=== PATIENT | male | born 1955 | race Caucasian/White ===

== ENCOUNTER 2016-08-21 06:58 | Emergency (ER) | payer MEDICAID ==
[~2016-08-21] VITALS: Ht 167.6 cm; Wt 82.0 kg
[~2016-08-21 06:58] MED LIST: ATOR1TAB18 PO; BRIL90TA PO; CARV12.5 PO; CYCL1TAB29 PO; LISI-519 PO; MUCI600T PO; PANT40TA3 PO; SERO100T PO; TAMS5CAP PO; VENTAER INH
[2016-08-21 07:03] VITALS: BP 153/70; PULSE 70; RESP 20; TEMP 97.6; O2SAT 95
[2016-08-21 07:54] LABS: AUTOMATED NEUTROPHIL # 8.6 TH/MM3 (1.8-7.7); BASOPHIL # 0.1 TH/MM3 (0-0.2); BASOPHIL % 0.5 % (0.0-2.0); EOSINOPHIL # 0.3 TH/MM3 (0-0.4); EOSINOPHIL % 2.1 % (0.0-4.0); HEMATOCRIT 39.2 % (39.0-51.0); HEMO FLAGS DIFF FINAL; LYMPH % 21.1 % (9.0-44.0); LYMPHOCYTE # 2.9 TH/MM3 (1.0-4.8); MEAN CELL VOLUME 87.6 FL (80.0-100.0); MEAN CORPUSCULAR HEMOGLOBIN 28.1 PG (27.0-34.0); MEAN CORPUSCULAR HGB CONC 32.1 % (32.0-36.0); MONO % 14.4 % (0.0-8.0); NEUT % 61.9 % (16.0-70.0); PLATELET COUNT 334 TH/MM3 (150-450); RED BLOOD COUNT 4.47 MIL/MM3 (4.50-5.90); WHITE BLOOD COUNT 13.9 TH/MM3 (4.0-11.0)
[2016-08-21 08:08] LABS: ALT (GPT) 32 U/L (12-78); ANION GAP 7 MEQ/L (5-15); AST (GOT) 34 U/L (15-37); BICARBONATE 26.2 MEQ/L (21.0-32.0); BLOOD UREA NITROGEN 20 MG/DL (7-18); CHLORIDE 106 MEQ/L (98-107); GLOMERULAR FILTRATION RATE 59 ML/MIN (>89); POTASSIUM 4.4 MEQ/L (3.5-5.1); SODIUM (NA) 139 MEQ/L (136-145)
[2016-08-21 08:10] LABS: ALKALINE PHOSPHATASE 104 U/L (45-117); TOTAL BILIRUBIN ADULT 0.4 MG/DL (0.2-1.0)
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
--- NOTE | 2016-08-21 08:51 | RADRPT ---
EXAM DATE/TIME: 08/21/2016 08:16 [facility] COMPARISON: CT LUMBAR SPINE W/O CONTRAST, February 13, 2016, 21:21. INDICATIONS : Pain. Bilateral lower extremity burning pain. MEDICAL HISTORY : None. SURGICAL HISTORY : Cardiac stents. Hand surgery. ENCOUNTER: Initial ACUITY: 4-6 months PAIN SCORE: 3/10 LOCATION: [facility] TECHNIQUE: Multiplanar multisequence MRI of the lumbar spine was performed without contrast. FINDINGS: The most caudal appearing lumbar vertebra is numbered as L5. Alignment is normal. Diffuse disc desicc ation is identified. Conus unremarkable. Hemangioma at the L2 vertebral body. Mild disc space narrowi ng is present throughout the lumbar spine. Bone marrow signal intensity is normal. T12-L1: The thecal sac has a normal diameter. No evidence of disc bulge or protrusion. The neural foramina are patent bilaterally. L1-L2: Mild left lateral disc bulging with no canal or foraminal narrowing. Mild facet and ligamentum flavum hypertrophy. L2-L3: A diffuse disc bulge is noted abutting the L3 nerve roots and L2 exiting nerves. Mild facet and ligam entum flavum hypertrophy. Moderate left foraminal narrowing. L3-L4: Mild diffuse disc bulge abuts the L4 nerve roots and L3 exiting nerves but does not displace them. Mi ld facet and ligamentum flavum hypertrophy. Moderate left foraminal narrowing. L4-L5: Diffuse disc bulge greatest centrally impinging upon the L5 nerve roots bilaterally and abutting the L4 exiting nerves. No significant canal or foraminal narrowing. Moderate facet hypertrophy. L5-S1: Minimal diffuse disc bulge with no canal or foraminal narrowing. CONCLUSION: Degenerative changes are noted as described above. Ramiro Puri MD on August 21, 2016 at 8:46 Board Certified Radiologist. This report was verified electronically.
--- NOTE | 2016-08-21 09:55 | RADRPT ---
EXAM DATE/TIME: 08/21/2016 09:20 [facility] COMPARISON: US ABDOMEN - GALLBLADDER, August 13, 2015, 19:00. INDICATIONS : Right upper quadrant pain. MEDICAL HISTORY : Myocardial infarction. Chronic obstructive pulmonary disease. Hypertension. Cerebrovascular accident. Coronary artery disease. Schizophrenia. Depression. SURGICAL HISTORY : Coronary artery stent. Left hand surgery. Gallbladder drain placement and removal. ENCOUNTER: Initial ACUITY: 1 day PAIN SCORE: 1/10 LOCATION: Right upper quadrant MEASUREMENTS: LIVER: 15.9 cm length COMMON DUCT: 5 mm RIGHT KIDNEY: 10.6 x 5.2 x 4.8 cm FINDINGS: LIVER: Normal echotexture without focal lesion or ductal dilatation. COMMON DUCT: No intraluminal mass or stone visualized. GALLBLADDER: Wall thickness measures up to 3 mm. No stones. No pericholecystic fluid and a negative sonographic Mu rphy's sign. PANCREAS: The visualized portions are within normal limits. RIGHT KIDNEY: No evidence of hydronephrosis, stone, or mass. CONCLUSION: Gallbladder wall thickness upper limits normal at 3 mm. Study otherwise unremarkable. Ramiro Puri MD on August 21, 2016 at 9:51 Board Certified Radiologist. This report was verified electronically.
[2016-08-21] MEDS ORDERED: PRED10PA2 PO (10:03)
[2016-08-21] MEDS ORDERED: GABA100C4 PO (10:07)
[2016-08-21 13:57] VITALS: BP 124/75
== END 2016-08-21 13:59 | disposition home or self-care (01) ==
LOC: NEPE 06:58
DX: M51.26 Other intervertebral disc displacement, lumbar region (principal); M79.651 Pain in right thigh; M79.652 Pain in left thigh; R20.0 Anesthesia of skin; R10.9 Unspecified abdominal pain; D72.829 Elevated white blood cell count, unspecified; R26.2 Difficulty in walking, not elsewhere classified; I10 Essential (primary) hypertension; Z86.59 Personal history of other mental and behavioral disorders; Z86.79 Personal history of other diseases of the circulatory system; Z87.09 Personal history of other diseases of the respiratory system
CPT/HCPCS: 72148; 76705; 80053; 85025

== ENCOUNTER 2016-08-22 17:07 | Emergency (ER) | payer MEDICAID ==
[~2016-08-22] VITALS: Ht 170.2 cm; Wt 65.0 kg
[~2016-08-22 17:07] MED LIST changes: +GABA100C4 PO; -MUCI600T PO; +PRED10PA2 PO
[2016-08-22 17:12] VITALS: PULSE 64; RESP 18; TEMP 98.3; O2SAT 98
--- NOTE | 2016-08-22 17:37 | PD ---
HPI Chief Complaint: Abdominal Pain Time Seen by Provider: 17:22 Travel History International Travel<30 days: No Contact w/Intl Traveler<30days: No Traveled to known affect area: No History of Present Illness HPI This patient complains of right upper quadrant spasms. They come and go. No vomiting today. He ate and did fine. No alleviating factors. Symptoms severity is mild. Duration 2 days. He was seen here yesterday and had labs and ultrasound. He denies fever. PFSH Past Medical History Hx Anticoagulant Therapy: No Depression: Yes Heart Rhythm Problems: No Cancer: No Cardiac Catheterization: Yes (STENT x2) Cardiovascular Problems: Yes (stent x2 2013) High Cholesterol: No Chemotherapy: No Chest Pain: Yes Congestive Heart Failure: No COPD: Yes Cerebrovascular Accident: Yes Coronary Artery Disease: Yes Diabetes: No Diminished Hearing: No Endocrine: No Gastrointestinal Disorders: No Genitourinary: No Hypertension: Yes Immune Disorder: No Implanted Vascular Access Dvce: No Musculoskeletal: No Neurologic: No Psychiatric: No Reproductive: No Respiratory: No Schizophrenia: Yes Thyroid Disease: No Past Surgical History Abdominal Surgery: Yes (GALLBLADDER STENT) AICD: No Arteriovenous Shunt: No Cardiac Surgery: Yes (STENT X2) Coronary Stent: Yes (2) Ear Surgery: No Endocrine Surgery: No Eye Surgery: No Genitourinary Surgery: No Gynecologic Surgery: No Insulin Pump: No Joint Replacement: No Neurologic Surgery: No Oral Surgery: No Pacemaker: No Thoracic Surgery: No Other Surgery: Yes (LEFT HAND) Social History Alcohol Use: No Tobacco Use: No Substance Use: No Allergies-Medications (Allergen,Severity, Reaction): Coded Allergies: Motrin (Verified Allergy, Severe, RASH, 08/21/16) Reported Meds & Prescriptions Reported Meds & Active Scripts Active Gabapentin 100 Mg Cap 100 Mg PO TID Prednisone (48) 10 mg tab Dose Pack (Prednisone) 10 Mg Dspk 10 Mg PO DIRECTED Flexeril (Cyclobenzaprine HCl) 10 Mg Tab 5 Mg PO BID PRN Coreg (Carvedilol) 12.5 Mg Tab 25 Mg PO BID Ventolin Hfa 18 GM Inh (Albuterol Sulfate) 90 Mcg/Act Aer 2 Puff INH Q4-6H PRN Reported Atorvastatin (Atorvastatin Calcium) 80 Mg Tab 80 Mg PO HS Brilinta (Ticagrelor) 90 Mg Tab 90 Mg PO BID Seroquel (Quetiapine Fumarate) 100 Mg Tab 100 Mg PO HS Pantoprazole (Pantoprazole Sodium) 40 Mg Tab 40 Mg PO DAILY Lisinopril 5 Mg Tab 5 Mg PO DAILY Flomax (Tamsulosin HCl) 0.4 Mg Cap 0.4 Mg PO HS Review of Systems General / Constitutional: No: Fever Eyes: No: Visual changes HENT: No: Headaches Cardiovascular: No: Chest Pain or Discomfort Respiratory: No: Shortness of Breath Gastrointestinal: Positive: Nausea, Diarrhea, Abdominal Pain Genitourinary: No: Dysuria Musculoskeletal: No: Pain Skin: No Rash Neurologic: No: Weakness Psychiatric: No: Depression Endocrine: No: Polydipsia Hematologic/Lymphatic: No: Easy Bruising Physical Exam Narrative GENERAL: Well-nourished, well-developed patient in no apparent distress. SKIN: Focused skin assessment reveals no rash and nodules. Skin is Warm and dry. HEAD: Atraumatic. Normocephalic. EYES: Pupils equal and round. No scleral icterus. No injection or drainage. ENT: No nasal bleeding or discharge. Mucous membranes pink and moist. NECK: Trachea midline. No JVD. CARDIOVASCULAR: Regular rate and rhythm. No murmur appreciated. RESPIRATORY: No accessory muscle use. Clear to auscultation. Breath sounds equal bilaterally. GASTROINTESTINAL: Abdomen soft, non-tender, nondistended. Hepatic and splenic margins not palpable. MUSCULOSKELETAL: No obvious deformities. No clubbing. No cyanosis. No edema. NEUROLOGICAL: Awake and alert. No obvious cranial nerve deficits. Motor grossly within normal limits. Normal speech. PSYCHIATRIC: Appropriate mood and affect; insight and judgment normal. Data Data Last Documented VS Vital Signs Date Time Temp Pulse Resp B/P Pulse Ox O2 Delivery O2 Flow Rate FiO2 08/22/16 17:12 98.3 64 18 98 Orders Complete Blood Count With Diff (08/22/16 17:33) Comprehensive Metabolic Panel (08/22/16 17:33) Lipase (08/22/16 17:33) Iv Access Insert/Monitor (08/22/16 17:33) MDM Medical Decision Making Medical Screen Exam Complete: Yes Emergency Medical Condition: Yes Medical Record Reviewed: Yes Differential Diagnosis Biliary colic, cholecystitis, colitis Narrative Course I have reviewed the patient's electronic medical record. Patient ultrasound with no periCholecystic fluid or gallstones noted. There was borderline thickness of the gallbladder wall. He had normal labs Patient has a soft benign nontender abdomen He is asymptomatic He was eating today without difficulty I don't feel he needs repeat extensive workup that was just done yesterday. He looks clinically well Going to observe him for a short while and if he does well we'll discharge him home. Diagnosis Primary Impression: Right upper quadrant abdominal pain of unknown etiology Additional Instructions: The patient was advised to follow up with their physician and return if they worsen. Med/Other Pt SpecificInfo: Other Disposition: 01 DISCHARGE HOME Condition: Stable Omi Andrade MD Aug 22, 2016 17:36
== END 2016-08-22 18:59 | disposition home or self-care (01) ==
LOC: NEPC 17:07
DX: R10.11 Right upper quadrant pain (principal)
CPT/HCPCS: 99283

== ENCOUNTER 2017-01-17 17:59 | Emergency (ER) | payer MEDICAID ==
[~2017-01-17 17:59] MED LIST changes: -ATOR1TAB18 PO; +ATOR80TA45 PO; +CYCL10TA PO; -CYCL1TAB29 PO
[2017-01-17 18:02] VITALS: BP 150/72; PULSE 60; RESP 12; TEMP 98.5; O2SAT 99
[2017-01-17] MEDS ORDERED: ROBA750T PO (19:43)
[2017-01-17] MEDS ORDERED: HYDR-3516 PO (19:43)
[2017-01-17] MEDS ORDERED: CYCLOBENZAPRINE HCL 10 MG TAB PO ONE (19:45)
[2017-01-17] MEDS ORDERED: ACETAMINOPHEN/HYDROcodone 325 MG/5 MG TAB PO ONE (19:45)
--- NOTE | 2017-01-17 19:48 | PD ---
HPI Chief Complaint: Back/ Neck Pain or Injury Time Seen by Provider: 19:33 Travel History International Travel<30 days: No Contact w/Intl Traveler<30days: No Traveled to known affect area: No History of Present Illness HPI 61-year-old white male presents to emergency department complains of right lower back pain after lifting a case of water at home yesterday evening. He states that he had bent over to lift it up when he had pulled something in his right lower back. He states the pain is moderate but can be severe with certain movements. He states that he has some relief when he still. Patient has an area of chronic decreased sensation to the distal lateral surface of his left thigh which is unchanged. He states that this been there for quite some time. No acute bowel or bladder changes. PFSH Past Medical History Hx Anticoagulant Therapy: No Depression: Yes Heart Rhythm Problems: No Cancer: No Cardiac Catheterization: Yes (STENT x2) Cardiovascular Problems: Yes (stent x2 2013) High Cholesterol: No Chemotherapy: No Chest Pain: Yes Congestive Heart Failure: No COPD: Yes Cerebrovascular Accident: Yes Coronary Artery Disease: Yes Diabetes: No Diminished Hearing: No Endocrine: No Gastrointestinal Disorders: No Genitourinary: No Hypertension: Yes Immune Disorder: No Implanted Vascular Access Dvce: No Musculoskeletal: No Neurologic: No Psychiatric: No Reproductive: No Respiratory: No Schizophrenia: Yes Thyroid Disease: No Past Surgical History Abdominal Surgery: Yes (GALLBLADDER STENT) AICD: No Arteriovenous Shunt: No Cardiac Surgery: Yes (STENT X2) Coronary Stent: Yes (2) Ear Surgery: No Endocrine Surgery: No Eye Surgery: No Genitourinary Surgery: No Gynecologic Surgery: No Insulin Pump: No Joint Replacement: No Neurologic Surgery: No Oral Surgery: No Pacemaker: No Thoracic Surgery: No Other Surgery: Yes (LEFT HAND) Social History Alcohol Use: No Tobacco Use: No Substance Use: No Allergies-Medications (Allergen,Severity, Reaction): Coded Allergies: ibuprofen (Unverified Allergy, Severe, RASH, 10/05/16) Reported Meds & Prescriptions Reported Meds & Active Scripts Active Hydrocodone-Acetaminophen 5-325 mg Tab 1 Tab PO Q8HR PRN Robaxin (Methocarbamol) 750 Mg Tab 750 Mg PO QID 10 Days Gabapentin 100 Mg Cap 100 Mg PO TID Prednisone (48) 10 mg tab Dose Pack (Prednisone) 10 Mg Dspk 10 Mg PO DIRECTED Flexeril (Cyclobenzaprine HCl) 10 Mg Tab 5 Mg PO BID PRN Coreg (Carvedilol) 12.5 Mg Tab 25 Mg PO BID Ventolin Hfa 18 GM Inh (Albuterol Sulfate) 90 Mcg/Act Aer 2 Puff INH Q4-6H PRN Reported Atorvastatin (Atorvastatin Calcium) 80 Mg Tab 80 Mg PO HS Brilinta (Ticagrelor) 90 Mg Tab 90 Mg PO BID Seroquel (Quetiapine Fumarate) 100 Mg Tab 100 Mg PO HS Pantoprazole (Pantoprazole Sodium) 40 Mg Tab 40 Mg PO DAILY Lisinopril 5 Mg Tab 5 Mg PO DAILY Flomax (Tamsulosin HCl) 0.4 Mg Cap 0.4 Mg PO HS Review of Systems General / Constitutional: No: Fever Eyes: No: Visual changes HENT: No: Headaches Cardiovascular: No: Chest Pain or Discomfort Respiratory: No: Shortness of Breath Gastrointestinal: No: Abdominal Pain Genitourinary: No: Dysuria Musculoskeletal: Positive: Limited ROM, Cramping, Pain, No: Edema Skin: No Rash Neurologic: Positive: Sensory Disturbance (chronic left lateral lower leg just above the knee.), No: Weakness, Incontinence Psychiatric: No: Depression Endocrine: No: Polydipsia Hematologic/Lymphatic: No: Easy Bruising Physical Exam Narrative GENERAL: This is a well-nourished, well-developed patient, in no apparent distress. SKIN: No rashes, ecchymoses or lesions. Warm and dry. HEAD: Atraumatic. Normocephalic. EYES: PERRL, EOMI, no discharge or injection. No scleral icterus. EARS: Clear NOSE: Nasal turbinates appear normal. THROAT: Mucosa pink and moist. Airway patent. NECK: Trachea midline. supple, moves head freely. LUNGS: Clear to auscultation. CV: Regular in rhythm. ABDOMEN: Soft nontender. EXT: No clubbing cyanosis or edema. Patient has intact sensation below the knees into the feet. Has good distal pulses. Back: No central bony tenderness to palpation of dorsal lumbar spine. He has right paralumbar muscle tenderness or spasm. He has decreased for flexion to 70 . He is able to heel and toe stand. No saddle anesthesia. Data Data Last Documented VS Vital Signs Date Time Temp Pulse Resp B/P (MAP) Pulse Ox O2 Delivery O2 Flow Rate FiO2 01/17/17 18:02 98.5 60 12 150/72 (98) 99 Orders Orders Cyclobenzaprine (Flexeril) (01/17/17 19:45) Acetamin-Hydrocod 325-5 Mg ([place] 5-325 (01/17/17 19:45) Ed Discharge Order (01/17/17 19:43) MDM Medical Decision Making Medical Screen Exam Complete: Yes Emergency Medical Condition: Yes Medical Record Reviewed: Yes Differential Diagnosis MDM: High Differential diagnoses: Fracture, sprain, strain, dislocation, contusion, neurovascular injury Narrative Course Patient is given Flexeril 10 mg of Lortab 5 mg by mouth. Patient has a lumbar strain. X-rays are not indicated. Patient has an allergy to ibuprofen. Diagnosis Primary Impression: Lumbar strain Qualified Codes: S39.012A - Strain of muscle, fascia and tendon of lower back , initial encounter Patient Instructions: General Instructions, Narcotic given in the ED Additional Instructions: Rest. Ice for the next 3 days followed by heat . Robaxin and Lortab.. Follow-up with a primary care doctor in one week. Return to the ER for emergencies. Med/Other Pt SpecificInfo: Prescription(s) given Scripts Hydrocodone-Acetaminophen (Hydrocodone-Acetaminophen) 5-325 mg Tab 1 TAB PO Q8HR Y for PAIN, #20 TAB 0 Refills Prov: Aneesh Hernández MD 01/17/17 Methocarbamol (Robaxin) 750 Mg Tab 750 MG PO QID for Muscle Spasm for 10 Days, TAB 0 Refills Prov: Aneesh Hernández MD 01/17/17 Disposition: 01 DISCHARGE HOME Condition: Stable Ralph Hernández Jan 17, 2017 19:48
== END 2017-01-17 20:12 | disposition home or self-care (01) ==
LOC: NEPK 17:59
DX: S39.012A Strain of muscle, fascia and tendon of lower back, initial encounter (principal); J44.9 Chronic obstructive pulmonary disease, unspecified; I25.10 Atherosclerotic heart disease of native coronary artery without angina pectoris; I10 Essential (primary) hypertension; F20.9 Schizophrenia, unspecified; X50.0XXA Overexertion from strenuous movement or load, initial encounter; Y92.009 Unspecified place in unspecified non-institutional (private) residence as the place of occurrence of the external cause; Z86.73 Personal history of transient ischemic attack (TIA), and cerebral infarction without residual deficits; Z79.899 Other long term (current) drug therapy
CPT/HCPCS: 99283

== ENCOUNTER 2017-05-01 13:24 | Emergency (ER) | payer MEDICAID ==
[~2017-05-01] VITALS: Ht 167.6 cm; Wt 80.0 kg
[~2017-05-01 13:24] MED LIST changes: +ASPI-516 CHEW; +ATOR20TA15 PO; +BENZ100 PO; +CARV3.12 PO; +FLUT1SPR5 EACH NARE; +HYDR-3516 PO; +QUET1TAB7 PO; +ROBA750T PO; +TAMS0.4C4 PO
[2017-05-01 13:42] VITALS: BP 105/55; PULSE 58; RESP 16; TEMP 98.5; O2SAT 96
[2017-05-01] MEDS ORDERED: CYCL10TA PO (15:52)
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
[2017-05-01] MEDS ORDERED: PRED20 PO (15:59)
[2017-05-01] MEDS ORDERED: predniSONE 20 MG TAB PO ONE (16:00)
[2017-05-01] MEDS ORDERED: KETOROLAC TROMETHAMINE 60 MG/2 ML (IM) VIAL IM ONE (16:00)
== END 2017-05-01 16:15 | disposition home or self-care (01) ==
LOC: NEPD 13:24
DX: M54.41 Lumbago with sciatica, right side (principal); G89.29 Other chronic pain; I10 Essential (primary) hypertension
CPT/HCPCS: 99283; J7512

== ENCOUNTER 2017-11-14 14:44 | Observation (INO) ==
--- NOTE | 2017-11-14 18:18 | XR ---
EXAM DATE: 11/14/2017 6:15 PM EDT AGE/SEX: 62 years / Male INDICATIONS: . Shortness of breath with bilateral feet swelling. CLINICAL DATA: This is the patient's initial encounter. Patient reports that signs and symptoms have been present for 2 days and indicates a pain score of 0/10. MEDICAL/SURGICAL HISTORY: Hypertension. . cardiac stents. COMPARISON: [facility] [place], 03/05/[place]. . FINDINGS: PA and lateral views of the chest demonstrate the lungs to be symmetrically aerated without evidence of mass, infiltrate or effusion. The cardiomediastinal contours are unremarkable. Osseous structures are intact. CONCLUSION: No acute cardiopulmonary disease. Electronically signed by: Gurpreet Corea MD 11/14/2017 6:16 PM EDT
--- NOTE | 2017-11-14 18:37 | ED ---
HPI General Chief complaint: Shortness of Breath/Dyspnea Stated complaint: Left foot swollen Time Seen by Provider: 11/14/17 17:49 Source: patient Mode of arrival: ambulatory Limitations: no limitations History of Present Illness HPI narrative: Patient is a 62-year-old male, past medical history significant for hypertension, hyperlipidemia, CAD with previous cardiac stent, who presents with complaint of left ankle/lower extremity swelling that he noticed this morning. He denies pain at this time. He states that upon awakening this morning he had several seconds of shortness of breath with chest pain that has resolved. No cough, fever, chills. He drove to [place] approximately 4 months ago but has not had any immobilization since then. Onset (ago): hour(s) Location: left and lower extremity Radiation: non-radiation Severity: mild Relieving factors: none Exacerbating factors: none Associated symptoms: shortness of breath Treatments prior to arrival: none Related Data Home Medications Medication Instructions Recorded Confirmed aspirin 81 mg PO DAILY 09/28/17 11/14/17 fluoxetine 20 mg PO DAILY 09/28/17 11/14/17 quetiapine [Seroquel] 25 mg PO HS 09/28/17 11/14/17 tamsulosin [Flomax] 0.4 mg PO HS 09/28/17 11/14/17 amlodipine [Norvasc] 5 mg PO DAILY 10/13/17 11/14/17 atorvastatin 20 mg PO HS 10/13/17 11/14/17 pantoprazole [Protonix] 40 mg PO DAILY 10/13/17 11/14/17 Previous Rx's Medication Instructions Recorded famotidine [Pepcid] 40 mg PO BID #10 tab 10/13/17 epinephrine [EpiPen 2-Toni] 0.3 mg IM Q10M PRN #2 each 10/14/17 diphenhydramine HCl [Benadryl] 25 mg PO Q6H PRN #14 cap 11/09/17 Allergies Allergy/AdvReac Type Severity Reaction Status Date / Time ibuprofen Allergy Severe RASH Verified 10/27/17 22:15 lisinopril Allergy Severe angioedema Verified 10/27/17 22:15 Review of Systems ROS: all other systems reviewed are negative [facility] Medical History Medical History Depression (Acute) Hypercholesterolemia (Acute) Surgical History Surgical History History of ERCP (Acute) Hx of heart artery stent (Acute) Social History Social History Substance History: No History of Abuse Second Hand Smoke Exposure: No Smoking Status: Former smoker Tobacco Type: Cigarettes How Often Do You Have a Drink Containing Alcohol: Never Recent Travel in [facility] within the Last 8 Weeks: No Recent Out of Country Travel within the Last 8 Weeks: No Immunization History Tetanus Immunization: Unsure Exam Narrative Exam Narrative: GENERAL: Well-appearing male in no acute distress SKIN: Focused skin assessment warm/dry. No rashes. HEAD: Atraumatic. Normocephalic. EYES: Pupils equal and round. No scleral icterus. No injection or drainage. ENT: No nasal bleeding or discharge. Mucous membranes pink and moist. NECK: Trachea midline. No JVD. CARDIOVASCULAR: Regular rate and rhythm. No murmur appreciated. Intact and equal peripheral pulses. Normal cap refill. RESPIRATORY: No accessory muscle use. Clear to auscultation. Breath sounds equal bilaterally. GASTROINTESTINAL: Abdomen soft, non-tender, nondistended. Hepatic and splenic margins not palpable. MUSCULOSKELETAL: No obvious deformities. No clubbing. No cyanosis. Slight edema to the left lower extremity when compared to the right. NEUROLOGICAL: Awake and alert. No obvious cranial nerve deficits. Motor grossly within normal limits. Normal speech. PSYCHIATRIC: Appropriate mood and affect; insight and judgment normal. Course Initial Documented Vital Signs Temperature 97.9 F 11/14/17 14:47 Pulse Rate 70 11/14/17 14:47 Respiratory Rate 16 11/14/17 14:47 Blood Pressure 162/83 H 11/14/17 14:47 Pulse Oximetry 96 11/14/17 14:47 Last Documented Vital Signs Temperature 97.9 F 11/14/17 14:47 Pulse Rate 70 11/14/17 14:47 Respiratory Rate 16 11/14/17 14:47 Blood Pressure 162/83 H 11/14/17 14:47 Pulse Oximetry 96 11/14/17 14:47 Medical Decision Making MDM Narrative Medical decision making narrative: Patient is a 62-year-old male, past medical history significant for coronary artery disease with a previous stent, who presents with complaint of bilateral ankle swelling worse on the left in addition to several seconds to minutes of chest pain or shortness of breath this morning that quickly resolved on its own. EKG shows sinus rhythm with a right bundle branch block which was present on previous EKG. Chest x-ray and venous duplex are unremarkable. Labs reveal a normal d-dimer and creatinine but with a troponin of 0.09 (with normal baseline). He has been admitted to Dr. Garcia, hospitalist on-call, for serial troponins and EKGs. Medical Screen Exam Complete: Yes Emergency Medical Condition: Yes Differential Diagnosis Differential Diagnosis: Differential diagnosis includes but is not limited to DVT, CHF, hypoalbuminemia. Medical Records Medical records reviewed: Yes I reviewed the patient's medical records. Lab Data Lab results reviewed: Yes I reviewed the patient's lab results. Lab results narrative: Slight elevation of troponin Result diagrams: 11/14/17 18:20 Lab Results 11/14/17 11/14/17 11/14/17 Range/Units 18:20 18:20 18:20 D-Dimer Quant (PE/DVT) 0.39 (0.00-0.50) mg/L FEU Sodium 139 (136-145) meq/L Potassium 4.2 (3.5-5.1) meq/L Chloride 103 (98-107) meq/L Carbon Dioxide 28.3 (21.0-32.0) meq/L Anion Gap 8 (5-15) meq/L BUN 12 (7-18) mg/dL Creatinine 1.12 (0.60-1.30) mg/dL Estimated GFR 66 L (>89) mL/min Random Glucose 95 (74-106) mg/dL Calcium 8.4 L (8.5-10.1) mg/dL Total Bilirubin 0.4 (0.2-1.0) mg/dL AST 24 (15-37) U/L ALT 49 (12-78) U/L Alkaline Phosphatase 129 H (45-117) U/L Troponin I 0.09 H (0.02-0.05) ng/mL B-Natriuretic Peptide 39 (0-100) pg/mL Total Protein 8.0 (6.4-8.2) g/dL Albumin 3.3 L (3.4-5.0) g/dL Imaging Data Attestation: I personally reviewed and interpreted this imaging study as follows : My impression: Unremarkable. Radiologist's impression: Chest X-Ray 11/14/17 17:57 CONCLUSION: No acute cardiopulmonary disease. Venous Doppler Study 11/14/17 17:57 CONCLUSION: 1. The study is negative for lower extremity deep venous thrombosis. ECG Data EKG Prior to Arrival: No Attestation: I personally reviewed and interpreted this ECG as follows: (Sinus rhythm at a rate of 61 bpm. Right bundle branch block present. No ST or T wave changes.) Discharge Plan Discharge Disposition Patient Disposition: 30 Still Patient Discharge Condition Condition: Stable Discharge Details Diagnosis: Chest pain, rule out acute myocardial infarction Physicians Team ED Provider: Jacquie Chun Primary Care Provider: UNKNOWN, Rxs /Orders / Referrals /Forms Prescriptions: No Action atorvastatin 20 mg Tablet 20 mg PO HS RF: 0 amlodipine [Norvasc] 5 mg Tablet 5 mg PO DAILY RF: 0 pantoprazole [Protonix] 40 mg Tablet,Delayed Release (Dr/Ec) 40 mg PO DAILY RF: 0 famotidine [Pepcid] 40 mg tablet 40 mg PO BID Qty: 10 RF: 0 epinephrine [EpiPen 2-Toni] 0.3 mg/0.3 mL auto-injector 0.3 mg IM Q10M PRN (Reason: anaphylaxis) Qty: 2 RF: 0 quetiapine [Seroquel] 25 mg Tablet 25 mg PO HS RF: 0 fluoxetine 20 mg Tablet 20 mg PO DAILY RF: 0 aspirin 81 mg Tablet,Chewable 81 mg PO DAILY RF: 0 tamsulosin [Flomax] 0.4 mg Capsule,Extended Release 24hr 0.4 mg PO HS RF: 0 diphenhydramine HCl [Benadryl] 25 mg capsule 25 mg PO Q6H PRN (Reason: itching) Qty: 14 RF: 0 Discharge Interventions Interventions: Vital Signs Last Done: 11/14/17 18:03 Status ED Status: Pending Admission
[2017-11-14 18:47] LABS: Alanine Aminotransferase 49 U/L (12-78); Albumin 3.3 g/dL (3.4-5.0); Anion Gap 8 meq/L (5-15); Aspartate Aminotransferase 24 U/L (15-37); Blood Urea Nitrogen 12 mg/dL (7-18); Calcium 8.4 mg/dL (8.5-10.1); Carbon Dioxide 28.3 meq/L (21.0-32.0); Chloride 103 meq/L (98-107); Glomerular Filtration Rate 66 mL/min (>89); Glucose,Random 95 mg/dL (74-106); Potassium 4.2 meq/L (3.5-5.1); Sodium 139 meq/L (136-145)
[2017-11-14 18:51] LABS: Alkaline Phosphatase 129 U/L (45-117); Troponin I 0.09 ng/mL (0.02-0.05)
--- NOTE | 2017-11-14 19:07 | US ---
EXAM DATE: 11/14/2017 6:32 PM EDT AGE/SEX: 62 years / Male INDICATIONS: Left leg swelling. CLINICAL DATA: This is the patient's initial encounter. Patient reports that signs and symptoms have been present for 1 week and indicates a pain score of 3/10. MEDICAL/SURGICAL HISTORY: Hypercholesterolemia. Depression. . ERCP. Heart artery stent. COMPARISON: [facility] – [place], US LEG BILATERAL VENOUS DOPPLER, 12/04/2016. . TECHNIQUE: Venous ultrasound of both lower extremities was performed from the inguinal ligament to t he proximal calf. Real-time, color Doppler and spectral tracing, compression and augmentation techni ques were used. FINDINGS: Normal compression of the deep venous system from the inguinal region to the proximal calf . No echogenic clot is seen. Normal response of the venous system to augmentation and respiration. CONCLUSION: 1. The study is negative for lower extremity deep venous thrombosis. Electronically signed by: Gurpreet Corea MD 11/14/2017 7:06 PM EDT
[2017-11-14] MEDS ORDERED: Bisacodyl 10 MG Supp RECTAL PRN (20:47)
[2017-11-14] MEDS ORDERED: Sodium Chloride 0.9% 2 ML Flush PRN IV.FLUSH (20:55)
[2017-11-14] MEDS: Sod Chloride 0.9% Inj 1,000 ML IV.CONT SCH (22:14)
[2017-11-14] MEDS: Sodium Chloride 0.9% 2 ML Flush BID IV.FLUSH SCH (22:14)
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
[2017-11-15 07:19] LABS: Baso % (Auto) 0.3 % (0.0-2.0); Eos # (Auto) 0.2 th/mm3 (0.0-0.4); Eos % (Auto) 2.1 % (0.0-4.0); Hematocrit 38.8 % (39.0-51.0); Hemoglobin 13.1 gm/dL (13.0-17.0); Lymph # (Auto) 2.5 th/mm3 (1.0-4.8); Lymph % (Auto) 23.2 % (9.0-44.0); Mean Corpuscular HGB Conc 33.8 % (32.0-36.0); Mean Corpuscular Hemoglobin 30.1 pg (27.0-34.0); Mean Corpuscular Volume 89.2 fL (80.0-100.0); Mean Platelet Volume 8.3 fL (7.0-11.0); Mono # (Auto) 1.3 th/mm3 (0.0-0.9); Mono % (Auto) 11.7 % (0.0-8.0); Neut # (Auto) 6.8 th/mm3 (1.8-7.7); Neut % (Auto) 62.7 % (16.0-70.0); Platelet Count 323 th/mm3 (150-450); Red Blood Count 4.35 mil/mm3 (4.50-5.90); Red Cell Distribution Width 15.1 % (11.6-17.2); White Blood Count 10.9 th/mm3 (4.0-11.0)
[2017-11-15 07:54] LABS: Alkaline Phosphatase 129 U/L (45-117); Total Protein 7.6 g/dL (6.4-8.2); Troponin I 0.08 ng/mL (0.02-0.05)
[2017-11-15 08:20] LABS: Alanine Aminotransferase 44 U/L (12-78); Albumin 3.1 g/dL (3.4-5.0); Anion Gap 8 meq/L (5-15); Aspartate Aminotransferase 27 U/L (15-37); Blood Urea Nitrogen 10 mg/dL (7-18); Calcium 8.5 mg/dL (8.5-10.1); Carbon Dioxide 29.4 meq/L (21.0-32.0); Chloride 102 meq/L (98-107); Glomerular Filtration Rate 62 mL/min (>89); Glucose,Random 86 mg/dL (74-106); Sodium 139 meq/L (136-145)
[2017-11-15] MEDS ORDERED: Famotidine 20 MG Tablet PO SCH (09:00)
[2017-11-15] MEDS: FLUoxetine 20 MG Capsule PO SCH (09:03)
[2017-11-15] MEDS: amLODIPine 5 MG Tablet PO SCH (09:03)
[2017-11-15 09:11] LABS: Potassium 4.3 meq/L (3.5-5.1)
[2017-11-15] MEDS: Sodium Chloride 0.9% 2 ML Flush BID IV.FLUSH SCH ×2 (10:11→20:31)
--- NOTE | 2017-11-15 15:38 | ECHRPT ---
Indication: HEART FAILURE CONCLUSIONS Normal left ventricular size. Moderate concentric left ventricular hypertrophy. The left ventricular systolic function is normal with an estimated ejection fraction in the range of 55-60%. Mitral annular calcification is present. Trace mitral valve regurgitation. Aortic valve sclerosis is present. Trace aortic valve regurgitation. BP: / HR: Rhythm: Technical Quality: FINDINGS LEFT VENTRICLE Normal left ventricular size. Moderate concentric left ventricular hypertrophy. The left ventricular systolic function is normal with an estimated ejection fraction in the range of 55-60%. RIGHT VENTRICLE Normal right ventricular size and systolic function. LEFT ATRIUM The left atrial size is normal. RIGHT ATRIUM The right atrial size is normal. ATRIAL SEPTUM Normal atrial septal thickness without atrial level shunting by limited color doppler interrogation. AORTA The aortic root and proximal ascending aorta are normal in size on limited imaging. MITRAL VALVE Mitral annular calcification is present. Trace mitral valve regurgitation. AORTIC VALVE Aortic valve sclerosis is present. Trace aortic valve regurgitation. TRICUSPID VALVE Structurally normal tricuspid valve. No tricuspid valve stenosis or regurgitation. PULMONARY VALVE The pulmonary valve is not well visualized. VESSELS The inferior vena cava is normal in size. PERICARDIUM No pericardial effusion. Renato Couch MD (Electronically Signed) Final Date:15 November 2017 15:38
[2017-11-15] MEDS: Sod Chloride 0.9% Inj 1,000 ML IV.CONT SCH (17:47)
--- NOTE | 2017-11-15 18:20 | ECG ---
Date Performed: 11/15/2017 Time Performed: 00:17:45 PTAGE: 62 years EKG: SINUS BRADYCARDIA INDETERMINATE AXIS RIGHT BUNDLE BRANCH BLOCK LEFT POSTERIOR FASCICULAR BL OCK Since the previous tracing, no significant change noted ABNORMAL ECG PREVIOUS TRACING : 11/14/2017 18.34 DOCTOR: Jorge Gandara Interpretating Date/Time 11/15/2017 18:19:09
--- NOTE | 2017-11-15 18:20 | ECG ---
Date Performed: 11/14/2017 Time Performed: 18:34:17 PTAGE: 62 years EKG: Sinus rhythm INDETERMINATE AXIS RIGHT BUNDLE BRANCH BLOCK Since the previous tracing, no significant change noted ABNORMAL ECG PREVIOUS TRACING : 03/05/2017 05.58 DOCTOR: Jorge Gandara Interpretating Date/Time 11/15/2017 18:19:00
--- NOTE | 2017-11-15 18:21 | ECG ---
Date Performed: 11/15/2017 Time Performed: 05:48:19 PTAGE: 62 years EKG: SINUS BRADYCARDIA INDETERMINATE AXIS RIGHT BUNDLE BRANCH BLOCK LEFT POSTERIOR FASCICULAR BL OCK Since the previous tracing, no significant change noted ABNORMAL ECG PREVIOUS TRACING : 11/15/2017 00.17 DOCTOR: Jorge Gandara Interpretating Date/Time 11/15/2017 18:19:17
[2017-11-15] MEDS: QUEtiapine 25 MG Tablet PO SCH (20:29)
--- NOTE | 2017-11-16 07:28 | P.PN ---
Subjective Interval history: Follow-up on patient with chest pain. Patient seen and examined. Patient denies any complaints of chest pain today. She feels well. He is currently n.p.o. for cardiac cath later today to be performed by Dr. Dyer. He denies any fever or chills. Denies any shortness of breath. Denies any nausea, vomiting or abdominal pain. Physical Exam Vital signs: Vital Signs 11/15/17 10:32 11/15/17 12:00 11/15/17 16:00 Temperature 98.9 F 98.3 F Pulse Rate 60 73 67 Respiratory Rate 18 18 Blood Pressure 139/68 165/90 H Pulse Oximetry 95 95 11/15/17 18:19 11/15/17 20:00 11/16/17 00:00 Temperature 98.2 F 99 F Pulse Rate 74 76 Respiratory Rate 18 17 Blood Pressure 145/81 H 136/77 125/70 Pulse Oximetry 94 L 96 11/16/17 04:00 11/16/17 07:21 Temperature 98.5 F 97.9 F Pulse Rate 64 74 Respiratory Rate 17 18 Blood Pressure 142/76 H 146/92 H Pulse Oximetry 94 L 95 Intake & Output 11/15/17 11/16/17 11/16/17 18:59 06:59 18:59 Intake Total 1000 / 1000 Balance 1000 / 1000 Intake: IV 1000 / 1000 NS Inj 1,000 ML @ 50 mls/hr IV. 1000 / 1000 CONT .Q20H [facility] Rx#:[id number] Other: Date of Last Bowel Movement 11/14/17 Narrative: GENERAL: WDWN middle aged Syrian male patient, in no acute distress. Awake and alert. SKIN: Warm and dry. HEENT: Atraumatic. Normocephalic. Pupils equal and round. No scleral icterus. No injection or drainage. No nasal bleeding or discharge. Mucous membranes pink and moist. NECK: Trachea midline. CARDIOVASCULAR: Regular rate and rhythm. RESPIRATORY: No accessory muscle use. Clear to auscultation. Breath sounds equal bilaterally. GASTROINTESTINAL: Abdomen soft, non-tender, nondistended. +BS. MUSCULOSKELETAL: Extremities without clubbing, cyanosis. Trace bilateral lower extremity edema. No obvious deformities. NEUROLOGICAL: Awake and alert. No obvious cranial nerve deficits. Motor grossly within normal limits. Able to move all extremities spontaneously. Normal speech. PSYCHIATRIC: Appropriate mood and affect; insight and judgment normal. Results - Labs CBC & Chem 7: 11/15/17 06:05 11/15/17 06:05 Laboratory Results - last 24 hr 11/15/17 06:05 Sodium 139 Potassium 4.3 Chloride 102 Carbon Dioxide 29.4 Anion Gap 8 BUN 10 Creatinine 1.19 Estimated GFR 62 L Random Glucose 86 Calcium 8.5 Total Bilirubin 0.9 AST 27 ALT 44 Alkaline Phosphatase 129 H Troponin I 0.08 H Total Protein 7.6 Albumin 3.1 L Assessment and Plan - Plan Chest pain Elevated troponin Chest x-ray no acute findings. EKG with right bundle branch as previously. Troponin mildly elevated, flat, 0.09, 0.08, 0.08. Most recent myocardial perfusion scan in February of this year with ejection fraction 42%, intermediate risk Echo EF 55-60%, moderate concentric left ventricular hypertrophy -Cardiology following, appreciate assistance. Currently n.p.o. for cardiac cath with Dr. Dyer later today. IVF. -continuous cardiac monitoring -ASA and statin daily Hypertension -Continue on Norvasc 5 mg daily. Add hydrochlorothiazide 25 mg daily -Continue to monitor BP and adjust treatment accordingly Bilateral lower extremity edema BNP not elevated Ultrasound negative for DVT Likely secondary to recently starting amlodipine. -RAMIREZ hose when OOB GERD, chronic. -Continue famotidine Depression, chronic. -Continue home medication. BPH, chronic. -Continue Flomax Hyperlipidemia, chronic. -Continue statin. DVT prophylaxis. bilateral SCD/RAMIREZ hose Code Status: FULL Discussed Condition With: patient, nursing staff, Dr. Gupta
[2017-11-16] MEDS: amLODIPine 5 MG Tablet PO SCH (08:49)
[2017-11-16] MEDS: Sodium Chloride 0.9% 2 ML Flush BID IV.FLUSH SCH ×2 (08:49→21:12)
[2017-11-16] MEDS: hydroCHLOROthiazide 25 MG Tablet PO SCH (08:49)
[2017-11-16] MEDS: FLUoxetine 20 MG Capsule PO SCH (08:49)
[2017-11-16] MEDS: Sod Chloride 0.9% Inj 1,000 ML IV.CONT SCH (08:54)
--- NOTE | 2017-11-16 16:13 | P.CONCA ---
History of Present Illness Service: Cardiology Consult date: 11/16/17 Requesting Physician: Sulma Moreau Reason for Consult: Chest pain, shortness of breath and increased lower extremity edema Primary Care Provider: UNKNOWN History of Present Illness: This is a 62-year-old male known to Dr. Dyer with a past medical history of hypertension, hyperlipidemia, coronary artery disease with previous cardiac stent placement and diabetes, who presented to the emergency department on 11/14/17 with complaints of left ankle/lower extremity swelling. On 11/14/17, he stated that he had several seconds of shortness of breath and chest pain upon awakening that morning, which has resolved. Currently he denies any chest pain, pressure, palpitations, dizziness or shortness of breath. He does complain of LE edema that has progressively gotten worse. EKG on 11/15/17 shows sinus bradycardia, right bundle branch block and left posterior fascicular block. 11/15/17 Echo shows EF 55-60%. Patient currently sinus rhythm on telemetry. Review of Systems General: Patient denies fevers, chills, and recent travel. HEENT: Patient denies headache, sore throat, difficulty swallowing. Cardiovascular: Patient denies chest pain, dizziness. Denies sensation of heart beating rapidly or irregularly. No syncope. Respiratory: Denies shortness of breath or inspirational chest discomfort. Denies coughing wheezing or hemoptysis. GI: Patient denies nausea, vomiting, diarrhea, abdominal pain, bloody stools. Musculoskeletal: Patient denies joint pain. Denies calf pain. Patient does complain of edema lower extremities. Neurovascular: Patient denies numbness, tingling, weakness in extremities. Denies headache. Endocrine: Denies polyuria and polydipsia. Hematologic: Denies easy bruising. Skin: Denies rash or itching. PMFSH - History History Provided By: Patient - Medical History Medical History: Medical History (Last Updated 11/15/17 @ 00:19 by Sanjay Garcia MD) Depression (Acute) Hypercholesterolemia (Acute) COPD (chronic obstructive pulmonary disease) Chronic back pain - Surgical History Surgical History: Surgical History (Last Reviewed 11/14/17 @ 18:38 by Jacquie Chun MD) History of ERCP (Acute) Hx of heart artery stent (Acute) - Tobacco History Second Hand Smoke Exposure: No Tobacco Use In Past 30 Days: No Smoking Status: Former smoker Tobacco Type: Cigarettes - Alcohol History How Often Do You Have a Drink Containing Alcohol: Never - Substance Use History Substance History: No History of Abuse - Travel History Recent Travel in the [place] Within the Last 8 Weeks: No Recent Travel Out of the Country Within the Last 8 Weeks: No - Immunization History Tetanus Immunization: Unsure Medications and Allergies Allergies Allergy/AdvReac Type Severity Reaction Status Date / Time ibuprofen Allergy Severe RASH Verified 10/27/17 22:15 lisinopril Allergy Severe angioedema Verified 10/27/17 22:15 Home Medications Medication Instructions Recorded Confirmed Type aspirin 81 mg PO DAILY 09/28/17 11/14/17 History fluoxetine 20 mg PO DAILY 09/28/17 11/14/17 History quetiapine [Seroquel] 25 mg PO 09/28/17 11/14/17 History tamsulosin [Flomax] 0.4 mg PO 09/28/17 11/14/17 History amlodipine [Norvasc] 5 mg PO DAILY 10/13/17 11/14/17 History atorvastatin 20 mg PO 10/13/17 11/14/17 History pantoprazole [Protonix] 40 mg PO DAILY 10/13/17 11/14/17 History Active Medications: Active Medications Al Hydroxide/Mg Hydroxide (Milk Of Magnjohn Liq) 30 ml PO Q12H PRN PRN Reason: Mild Constipation Amlodipine Besylate (Norvasc) 5 mg PO DAILY [facility] Last Admin: 11/16/17 08:49 Dose: 5 mg Aspirin (Aspirin Chew) 81 mg PO DAILY [facility] Last Admin: 11/16/17 08:49 Dose: 81 mg Atorvastatin Calcium (Lipitor) 20 mg PO [facility] Last Admin: 11/15/17 20:29 Dose: 20 mg Bisacodyl (Dulcolax Supp) 10 mg RECTAL DAILY PRN PRN Reason: SEVERE CONSITIPATION Fluoxetine HCl (Prozac) 20 mg PO DAILY [facility] Last Admin: 11/16/17 08:49 Dose: 20 mg Hydrochlorothiazide (Hydrodiuril) 25 mg PO DAILY [facility] Last Admin: 11/16/17 08:49 Dose: 25 mg Sodium Chloride (Ns Inj) 1,000 mls @ 50 mls/hr IV.CONT .Q20H [facility] Last Admin: 11/16/17 08:54 Dose: 50 mls/hr Lactulose (Lactulose Liq) 30 ml PO DAILY PRN PRN Reason: SEVERE CONSITIPATION Pantoprazole Sodium (Protonix) 40 mg PO DAILY [facility] Last Admin: 11/16/17 08:49 Dose: 40 mg Quetiapine Fumarate (Seroquel) 25 mg PO [facility] Last Admin: 11/15/17 20:29 Dose: 25 mg Sennosides (Senokot) 17.2 mg PO Q12H PRN PRN Reason: Moderate Constipation Sodium Chloride (Ns Flush) 2 ml IV.FLUSH BID [facility] Last Admin: 11/16/17 08:49 Dose: 2 ml Sodium Chloride (Ns Flush) 2 ml IV.FLUSH PRN PRN PRN Reason: FLUSH AFTER USING IV ACCESS Tamsulosin HCl (Flomax) 0.4 mg PO [facility] Last Admin: 11/15/17 20:29 Dose: 0.4 mg Exam Vital signs: Vital Signs 11/15/17 16:00 11/15/17 18:19 11/15/17 20:00 Temperature 98.3 F 98.2 F Pulse Rate 67 74 Respiratory Rate 18 18 Blood Pressure 165/90 H 145/81 H 136/77 Pulse Oximetry 95 94 L 11/16/17 00:00 11/16/17 04:00 11/16/17 07:21 Temperature 99 F 98.5 F 97.9 F Pulse Rate 76 64 74 Respiratory Rate 17 17 18 Blood Pressure 125/70 142/76 H 146/92 H Pulse Oximetry 96 94 L 95 11/16/17 10:37 11/16/17 12:00 Temperature 98.2 F Pulse Rate 69 71 Respiratory Rate 18 Blood Pressure 131/77 Pulse Oximetry 97 Intake & Output 11/15/17 11/16/17 11/16/17 18:59 06:59 18:59 Intake Total 1000 / 1000 1000 / 1000 Balance 1000 / 1000 1000 / 1000 Intake: IV 1000 / 1000 1000 / 1000 NS Inj 1,000 ML @ 50 mls/hr IV. 1000 / 1000 1000 / 1000 CONT .Q20H [facility] Rx#:[id number] Other: Date of Last Bowel Movement 11/14/17 - Constitutional no acute distress - Routine HEENT Exam Head: Present: normocephalic Eye: Present: PERRL ENT: Present: mucous membranes moist - Routine Neck Exam Present: full ROM - Routine Respiratory Exam Present: CTA bilaterally - Routine Cardiovascular Exam Present: S1, S2, bradycardia. Absent: gallop, rubs, tachycardia, irregular rhythm - Routine Abdominal Exam Present: normoactive bowel sounds - Routine Extremities Exam Present: edema, full ROM, pulses intact, normal capillary refill. Absent: cyanosis, clubbing Comments: Right lower extremity edema 1+, left lower extremity edema 1-2+. - Routine Skin Exam Present: intact - Routine Neurological Exam Present: oriented X3 Patient is [place]-speaking and has broken [place]. Results 11/15/17 06:05 11/15/17 06:05 Cardiac Enzymes 11/14/17 11/14/17 11/15/17 Range/Units 18:20 18:20 01:04 AST 24 (15-37) U/L Troponin I 0.09 H 0.08 H (0.02-0.05) ng/mL B-Natriuretic Peptide 39 (0-100) pg/mL 11/15/17 Range/Units 06:05 AST 27 (15-37) U/L Troponin I 0.08 H (0.02-0.05) ng/mL B-Natriuretic Peptide (0-100) pg/mL Coagulation 11/14/17 Range/Units 18:20 B-Natriuretic Peptide 39 (0-100) pg/mL CBC 11/15/17 Range/Units 06:05 WBC 10.9 (4.0-11.0) th/mm3 RBC 4.35 L (4.50-5.90) mil/mm3 Hgb 13.1 (13.0-17.0) gm/dL Hct 38.8 L (39.0-51.0) % Plt Count 323 (150-450) th/mm3 Neut # (Auto) 6.8 (1.8-7.7) th/mm3 Lymph # (Auto) 2.5 (1.0-4.8) th/mm3 [place] # (Auto) 1.3 H (0.0-0.9) th/mm3 Eos # (Auto) 0.2 (0.0-0.4) th/mm3 Baso # (Auto) 0.0 (0.0-0.2) th/mm3 Comprehensive Metabolic Panel 11/14/17 11/15/17 Range/Units 18:20 06:05 Sodium 139 139 (136-145) meq/L Potassium 4.2 4.3 (3.5-5.1) meq/L Chloride 103 102 (98-107) meq/L Carbon Dioxide 28.3 29.4 (21.0-32.0) meq/L BUN 12 10 (7-18) mg/dL Creatinine 1.12 1.19 (0.60-1.30) mg/dL Calcium 8.4 L 8.5 (8.5-10.1) mg/dL AST 24 27 (15-37) U/L ALT 49 44 (12-78) U/L Alkaline Phosphatase 129 H 129 H (45-117) U/L Total Protein 8.0 7.6 (6.4-8.2) g/dL Albumin 3.3 L 3.1 L (3.4-5.0) g/dL Intake and Output 11/16/17 11/16/17 11/16/17 06:59 14:59 22:59 Intake Total 1000 / 1000 Balance 1000 / 1000 Intake: IV 1000 / 1000 NS Inj 1,000 ML @ 50 mls/hr IV. 1000 / 1000 CONT .Q20H [facility] Rx#:[id number] - Imaging and Cardiology Imaging: Impressions Chest X-Ray 11/14/17 17:57 CONCLUSION: No acute cardiopulmonary disease. Venous Doppler Study 11/14/17 17:57 CONCLUSION: 1. The study is negative for lower extremity deep venous thrombosis. Assessment and Plan - Assessment (1) Chest pain, rule out acute myocardial infarction Code(s): R07.9 - Chest pain, unspecified Status: Acute (2) HTN (hypertension) Code(s): I10 - Essential (primary) hypertension Status: Acute (3) History of ERCP Code(s): Z98.890 - Other specified postprocedural states Status: Acute (4) Depression Code(s): F32.9 - Major depressive disorder, single episode, unspecified Status : Acute (5) Hypercholesterolemia Code(s): E78.00 - Pure hypercholesterolemia, unspecified Status: Acute (6) Hx of heart artery stent Code(s): Z95.5 - Presence of coronary angioplasty implant and graft Status: Acute - Plan Due to patient's presenting symptoms, elevated troponin and history of cardiac stents, we will proceed with cardiac catheterization today. Patient kept npo except for medications. We will have patient sign consents for cardiac catheterization and possible coronary intervention. We discussed cardiac catheterization risk factors including but not limited to bleeding or infection at insertion site, damage to the artery at insertion site , kidney injury, injury to the coronary arteries, stroke, heart attack and/or possibly . Patient verbalized understanding and wants to proceed with cardiac catheterization. We will continue to monitor patient during hospitalization and follow-up in office post discharge. Patient was seen and evaluated by Dr. Dyer who participated in care, management and decision-making. - Attending Attestation Patient seen and examined. I reviewed and agree with the evaluation and plan as presented. Cath and possible PCI today.
[2017-11-16] MEDS ORDERED: Heparin/NS PF Inj 1,500 ML ONE (16:34)
[2017-11-16] MEDS ORDERED: fentaNYL Citrate Inj 100 MCG/2 ML Ampul ONE (16:42)
[2017-11-16] MEDS ORDERED: MethylPREDNISolone Sod Succinate Inj 125 MG/2 ML Vial ONE (16:48)
[2017-11-16] MEDS ORDERED: Famotidine PF Inj 20 MG/2 ML Vial ONE (16:48)
--- NOTE | 2017-11-16 17:38 | CATHPROC ---
[facility]rivago HIS Report Study Information Study Number Scheduled Start Study Start [id number] 11/16/2017 Nov 16 2017 4:46PM Referring Institution Admit Source Facility Department 1 Emergency department [facility] - Property Insurance Inspector Physician and Clinical Staff Initial Prasanna Harvey Longitudinal Float Operator Brooke Ramirez,Shahla Chacon RN Recorder Prasanna Biggs,RT(R) Scrub Shaneka Schrader,YONI TECH2 Procedures Performed Procedure Location (Site) Vessel Name Angiogram LV LV Ventricle Coronary Angiograms LCA Left Coronary Coronary Angiograms RCA Right Coronary L Heart Cath Equipment Time Airline Attendant Description Size Mfg Part Number Used/Scraped TRANSDUCER, TRUWAVE [id number] 16:49 [employer] CASTRO * Used W/STOCKCOCK *[id number] 17:22 [employer] VASCADE, FR5 CLOSURE SYSTEM FR 5 Used *[id number] *[id number] [id number] *[id number] [id number] *[id number] 16:49 [employer] BLANKET,WARM AIR CCL * Used *[id number] 16:49 [employer] PACK, CCL CUSTOM * Used *[id number] 16:49 [employer] PACER PEN, SKIN DUAL W/ RULER * Used *[id number] 16:49 [employer] WIRE, 3MMJ .035 180CM 180CM Used *[id number] PROBE COVER, STERILE [id number] 16:49 [employer] MEDICAL * Used ULTRASOUND W/ GEL *[id number] 16:49 NAMIC MANIFOLD, 4 PORT * Used *[id number] 16:59 NAMIC TUBING, HIGH PRESSURE 48" 48" Used *[id number] 17:12 [employer] OMNIPAQUE, 300 MG, 50ML 50ML [id number] Used 16:49 [employer] OMNIPAQUE, 350 MG, 150ML 150ML [id number] Used [id number] 16:49 [employer] MEDICAL SHEATH, FR5 TERUMO (10CM) FR 5 Used *[id number] History: Current Medications Medication Dosage/Unit Route Frequency Last Date/Time Taken ASA Statins (any) History: Allergies Allergy Reaction Motrin RASH ibuprofen RASH lisinopril angioedema History: Risk Factors Family History of Hypertension Dyslipidemia Previous HI Previous Heart Failure Premature CAD Yes Yes Yes No No Prior Valve Prior PCI Prior PCIDate Prior CABG Surgery No Yes 08/04/2015 No Cerebrovascular Peripheral Artery Chronic Lung On Dialysis Diabetes Disease Disease Disease No No No No No History: Symptoms/Diagnosis Selection Items Chest pain History: Stress Tests Stress or Imaging Studies Performed No History: Other Disease Selection Items CAD HTN History: Other Current Smoker No Labs Hgb (g/dl) Hct (%) WBC (l/cumm) Platelets (thousands) 11.60-17.00 35.00-51.00 4.00-11.00 150.00-450.00 13.1 38.8 10.9 323 Glucose (mg/dl) BUN (mg/dl) Creatinine (mg/dl) BUN:Creatinine (1:x) 74.00-106.00 7.00-18.00 0.50-1.30 10.00-20.00 86 10 1.1 9.1 Na (meq/l) K (meq/l) 136.00-145.00 3.50-5.10 139 4.3 Troponin I (ng/ml) CPK-MB (ng/ML) 0.02-0.05 0.50-3.60 0.08 Not Drawn Medication Medication Total Dose (Bolus/Oral) Medication Total Dosage/Unit 1% XYLOCAINE 20 mL BENADRYL 50 mg FENTANYL 50 mcg PEPCID 20 mg SOLU-MEDROL 125 mg VERSED 4 mg Medications (Bolus/Oral) Medication Time Given Dosage/Unit Administered By Reason PEPCID 11/16/2017 4:52:36 PM 20 mg Hesher, Brooke 20 mg PEPCID given in lab by Brooke Ramirez RN in Right Antecubital via Peripheral IV. VERSED 11/16/2017 4:53:00 PM 2 mg Hesher, Brooke 2 mg VERSED given in lab by Brooke Ramirez, FILI in Right Antecubital via Peripheral IV. Ordered by Prasanna Ramos. SOLU-MEDROL 11/16/2017 4:53:09 PM 125 mg Hesher, Brooke 125 mg SOLU-MEDROL given in lab by Brooke Ramirez, FILI via Peripheral IV. BENADRYL 11/16/2017 4:53:21 PM 50 mg Hesher, Brooke 50 mg BENADRYL given in lab by Brooke Ramirez, RN via Peripheral IV. FENTANYL 11/16/2017 4:54:00 PM 50 mcg Brooke Ramirez 50 mcg FENTANYL given in lab by Brooke Ramirez, FILI via Peripheral IV. Ordered by Prasanna Dyer. VERSED 11/16/2017 5:03:38 PM 2 mg Brooke Ramirez 2 mg VERSED given in lab by Brooke Ramirez, RN in Right Antecubital via Peripheral IV. Ordered by Prasanna Ramos. 1% XYLOCAINE 11/16/2017 5:07:15 PM 20 mL Brooke Ramirez 20 mL 1% XYLOCAINE given in lab by Brooke Ramirez, RN via Subcutaneous. Ordered by Prasanna Dyer. Medication (Drip) Medication Time Given Dosage/Unit Concentration/Unit Diluent (ml) Solutio n IV Solutions 11/16/2017 4:49:45 PM 0 mL (IV) 1000 NaCl .9 Patient arrived on IV Solutions in Right Antecubital via Peripheral IV. Pump/Drip Flow = 20 ml/hr usi ng NaCl .9. Initial Case Assessment Cardiovascular HR Rhythm NIBP Chest Pain 64 REG 166/93 2 Edema Present Skin color Skin None Normal Warm Circulatory - Right Pulses Dorsalis Pedis Femoral 1 2 Scale (0,1,2,3,4,d) Circulatory - Left Pulses Dorsalis Pedis Femoral 1 1 Scale (0,1,2,3,4,d) Circulatory - Lower Extremities Color Lower Right Color Lower Left Normal Normal Neurological State Oriented to time-place- Alert Moves all extremities person Respiration - General Respiration Rate SpO2 (%) O2 (lpm) (B/min) 15 97 2 Final Case Assessment Cardiovascular HR Rhythm NIBP Chest Pain 62 Sinus 152/90 0 Edema Present Skin color Skin None Normal Warm Dry Circulatory - Right Pulses Dorsalis Pedis Femoral 1 2 Scale (0,1,2,3,4,d) Circulatory - Left Pulses Dorsalis Pedis Femoral 1 1 Scale (0,1,2,3,4,d) Neurological State Oriented to time-place- Alert Moves all extremities person Respiration - General Respiration Rate SpO2 (%) O2 (lpm) (B/min) 12 98 2 Chronological Log Time Study Chronological Log Vitals capture started with the following parameters, Patient=Adult, Interval=5 min, Initial Pr yqyzss=672 mmHg, 16:44:54 Deflation Rate=5 mmHg, Cuff placed on Right Arm 16:45:59 NIBP STAT measurement started. 16:46:07 Patient arrived via Bed. 16:46:08 Patient Name, D.O.B, / Armband Verified By R.N. 16:46:26 Reference ECG taken 16:46:34 Consent signed by the physician and the patient and verified by the Property Insurance Inspector staff. 16:46:35 Verbal Stimulation=2 Physical Stimulation=2 Airway=2 Respiration=2 TOTAL=8. (0=absent, 1=li mited, 2=present) 16:46:35 Pre-op and post- op instructions given; patient acknowledges understanding of instructions. 16:46:43 HR=62 bpm, NJRC=326/89 mmhg, SpO2=96.0 %, Resp=20 B/min, Pain=2, Rachel=10, Hough=2 16:47:57 HR=64 bpm, ENJV=122/93 mmhg, SpO2=96.0 %, Resp=22 B/min, Pain=2, Rachel=10, Hough=2 16:49:15 Patient has been NPO for More than 6Hrs. Skin Breakdown-NONE 16:49:16 16:49:29 A # 20 IV was noted in the Antecubital (right). Grade = 0 16:49:45 Patient arrived on IV Solutions in Right Antecubital via Peripheral IV. Pump/Drip Flow = 20 ml/hr using NaCl .9. 16:50:04 History and physical on the chart or being dictated. Assessment: Initial Case, HR=64 BPM, Rhythm=REG, QRKQ=265/93 mmhg, Chest Pain=2, Edema=None, Color=Normal, Skin = Warm Right Pulses: Efraín Ped=1, Femoral=2 Left Pulses: Efraín Ped=1, Femoral=1 16:50:05 Lower Right Extremities: Color=Normal Lower Left Extremities: Color=Normal Neurological: State=Alert, Ox3, DE SANTIAGO Respiration: Resp=15 B/min, SpO2=97 %, O2=2 lpm 16:50:47 Bilateral groins prepped with 2% chlorhexidine, and draped after a 3 minute waiting time. 16:50:51 MD paged 16:51:58 MD arrived. 16:52:36 20 mg PEPCID given in lab by Brooke Ramirze RN in Right Antecubital via Peripheral IV. 16:52:40 HR=65 bpm, WVTL=106/96 mmhg, SpO2=98.0 %, Resp=14 B/min, Pain=2, Rachel=10, Hough=2 16:53:00 2 mg VERSED given in lab by Brooke Ramirez RN in Right Antecubital via Peripheral IV. Orde red by Prasanna Dyer. 16:53:09 125 mg SOLU-MEDROL given in lab by Brooke Ramirez RN via Peripheral IV. 16:53:21 50 mg BENADRYL given in lab by Brooke Ramirez RN via Peripheral IV. 16:54:00 50 mcg FENTANYL given in lab by Brooke Ramirez RN via Peripheral IV. Ordered by Shakira Dyer. 16:57:39 HR=63 bpm, CAGK=973/96 mmhg, SpO2=97.0 %, Resp=13 B/min, Pain=2, Rachel=10, Hough=2 17:02:38 HR=60 bpm, BOQW=560/97 mmhg, SpO2=98.0 %, Resp=19 B/min, Pain=2, Rachel=10, Hough=2 17:02:49 MD arrived. 17:03:38 2 mg VERSED given in lab by Brooke Ramirez RN in Right Antecubital via Peripheral IV. Orde red by Prasanna Dyer. Time Out. Correct patient, correct procedure, correct physician, labs, allergies, and equipment verified with component lab tech 17:05:05 team present. Fire risk assesment completed (see hard stop sheet for coding). Time Out Conc urred by MD and individual staff in procedure. 17:07:15 20 mL 1% XYLOCAINE given in lab by Brooke Ramirez, FILI via Subcutaneous. Ordered by Prasanna Dyer. 17:07:21 Case Start 17:07:24 Access site was Right Femoral Artery. 17:07:33 A SHEATH, FR5 TERUMO (10CM) FR 5 was advanced into the Fem Art (right) using the Percutaneo us technique. 17:07:37 HR=62 bpm, DCDC=814/100 mmhg, SpO2=97.0 %, Resp=13 B/min, Pain=2, Rachel=10, Hough=2 A PIGTAIL ANG. INFINITI CATHETER FR 5 was advanced over a wire. OMNIPAQUE, 350 MG, 150ML 150ML was used 17:08:07 for injections. 17:09:22 Pressure channel 1 zeroed. 17:10:13 Pressure channel 2 zeroed. 17:11:32 The LV was injected at 10 cc/sec for a total of 30. OMNIPAQUE, 300 MG, 50ML 50ML used. Recorded Pressure: LV, HR=65, Condition=Condition 1 17:12:01 (Left Ventricle) LV 142/15/30 Recorded Pressure: LV, Ao, HR=65, Condition=Condition 1 17:12:07 (Left Ventricle) LV 124/6/8, (Aorta) Ao 136/73/100 17:12:36 HR=65 bpm, IUWV=075/94 mmhg, SpO2=95.0 %, Resp=14 B/min, Pain=2, Rachel=10, Hough=2 17:12:51 Catheter was removed A JL 4.0 INFINITI CATHETER FR 5 was advanced over a wire. OMNIPAQUE, 350 MG, 150ML 150ML was us ed for 17:12:58 injections. Recorded Pressure: Ao, HR=64, Condition=Condition 1 17:13:53 (Aorta) Ao 154/82/111 17:14:16 The LCA was injected and visualized at various angles. OMNIPAQUE, 350 MG, 150ML 150ML used . 17:15:34 Catheter was removed 17:17:18 The RCA was injected and visualized at various angles. OMNIPAQUE, 350 MG, 150ML 150ML used . 17:17:41 HR=63 bpm, IFEB=895/82 mmhg, SpO2=94.0 %, Resp=15 B/min, Pain=2, Rachel=10, Hough=2 17:17:46 Catheter was removed 17:17:56 Case End (Physician broke scrub) 17:22:42 HR=63 bpm, ZELA=204/92 mmhg, SpO2=96.0 %, Resp=12 B/min, Pain=2, Rachel=10, Hough=2 17:25:51 VASCADE, FR5 CLOSURE SYSTEM FR 5 placement in the Fem Art (right) 17:27:39 HR=63 bpm, MBVZ=032/90 mmhg, SpO2=96.0 %, Resp=13 B/min, Pain=2, Rachel=10, Hough=2 17:29:08 Sterile dressing applied to site 17:29:09 No case complications noted. 17:29:10 Cine recording checked. Assessment: Final Case, HR=62 BPM, Rhythm=Sinus, IOSU=450/90 mmhg, Chest Pain=0, Edema=None, Color=Normal, Skin = Warm, Dry Right Pulses: Efraín Ped=1, Femoral=2 17:29:11 Left Pulses: Efraín Ped=1, Femoral=1 Neurological: State=Alert, Ox3, [place] Respiration: Resp=12 B/min, SpO2=98 %, O2=2 lpm 17:31:22 A Left Heart Cath was performed. 17:32:40 HR=60 bpm, QYIK=179/99 mmhg, SpO2=98.0 %, Resp=14 B/min, Pain=2, Rachel=10, Hough=2 17:34:38 Vitals capture stopped. 17:35:02 Bedside Report will be given. End Study - Contrast Media Used In Study Contrast Total Opened (mL) Total Used (mL) Total Wasted (mL) Omnipaque 200 90 110 End Study - Maximum Contrast Load Max Contrast Load (mL) 421.5 End Study - Radiation Exposure Fluoro Time (minutes) 1.4 End Study - Patient Disposition Complications Transferred To Interventional Outcome No Telemetry Bed No attempt made
--- NOTE | 2017-11-16 18:40 | MR ---
cc: Prasanna Dyer MD DATE: 11/16/2017 DATE OF PROCEDURE: 07/30/2017 INDICATION: Congestive heart failure, class III, worsening angina, angina equivalent, class III angina. PROCEDURE PERFORMED: 1. Retrograde left heart catheterization with left ventriculography and selective coronary angiography. 2. Moderate sedation. ACCESS SITE: Right femoral artery. EQUIPMENT USED: A 5-Kittitian pigtail catheter, 5-Kittitian JL4 and AR modified coronary catheters. MEDICATIONS: Versed IV, fentanyl IV. IV CONTRAST USED: Omnipaque 90 mL COMPLICATIONS: None. BLOOD LOSS: Less than 10 mL METHOD OF HEMOSTASIS: Vascade closure. RESULTS: A. HEMODYNAMICS: Heart rate 63 beats per minute. LV end-diastolic pressure 10 mmHg, left ventricle 130/10 aorta, 130/82/111. B. LEFT VENTRICULOGRAPHY: Left ventricular ejection fraction 45%, wall motion: mild global hypokinesis, no mitral regurgitation. C: CORONARY ANGIOGRAPHY: The left main coronary is patent. Left anterior descending artery had a 60% stenosis in the mid LAD distally to the first septal branch. D1 patent. D2 patent. Left circumflex artery has a patent stent in the proximal portion. There is 30% proximal stenosis. OM1 is patent. The right coronary artery is a dominant vessel, which is patent. There are patent stents in the vessel. PDA patent, PLV patent. DIAGNOSES: 1. Moderate coronary artery disease with 60% stenosis of the mid left anterior descending artery. 2. Moderate left ventricular systolic function. DISPOSITION: Mr. Murphy will continue his current program for coronary disease. His stents in the left circumflex artery and right coronary artery remain patent. He has evidence of moderate nonobstructive coronary disease in the left anterior descending artery. I recommend to continue and titrate aggressive modification of his cardiac risk factors. Prasanna Dyer MD OQ/ct , 05:28 PM , 05:37 PM MTDD
[2017-11-16] MEDS: QUEtiapine 25 MG Tablet PO SCH (21:12)
[2017-11-17] MEDS: Sod Chloride 0.9% Inj 1,000 ML IV.CONT SCH (04:50)
[2017-11-17 08:14] VITALS: TEMP 97.5
[2017-11-17] MEDS: FLUoxetine 20 MG Capsule PO SCH (09:07)
[2017-11-17] MEDS: hydroCHLOROthiazide 25 MG Tablet PO SCH (09:08)
[2017-11-17] MEDS: amLODIPine 5 MG Tablet PO SCH (09:08)
[2017-11-17] MEDS: Sodium Chloride 0.9% 2 ML Flush BID IV.FLUSH SCH (09:09)
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
--- NOTE | 2017-11-17 12:41 | P.PNCA ---
Subjective Interval history: Patient sitting up in chair in no acute distress. Patient denies any chest pain , pressure, palpitations, edema, dizziness or shortness of breath. Medications and Allergies Allergies Allergy/AdvReac Type Severity Reaction Status Date / Time ibuprofen Allergy Severe RASH Verified 10/27/17 22:15 lisinopril Allergy Severe angioedema Verified 10/27/17 22:15 Home Medications Medication Instructions Recorded Confirmed Type aspirin 81 mg PO DAILY 09/28/17 11/14/17 History fluoxetine 20 mg PO DAILY 09/28/17 11/14/17 History quetiapine [Seroquel] 25 mg PO HS 09/28/17 11/14/17 History tamsulosin [Flomax] 0.4 mg PO HS 09/28/17 11/14/17 History amlodipine [Norvasc] 5 mg PO DAILY 10/13/17 11/14/17 History pantoprazole [Protonix] 40 mg PO DAILY 10/13/17 11/14/17 History Active Medications: Active Medications Al Hydroxide/Mg Hydroxide (Milk Of Magnesia Liq) 30 ml PO Q12H PRN PRN Reason: Mild Constipation Amlodipine Besylate (Norvasc) 5 mg PO DAILY [facility] Last Admin: 11/17/17 09:08 Dose: 5 mg Aspirin (Aspirin Chew) 81 mg PO DAILY [facility] Last Admin: 11/17/17 09:08 Dose: 81 mg Atorvastatin Calcium (Lipitor) 20 mg PO [facility] Last Admin: 11/16/17 21:12 Dose: 20 mg Bisacodyl (Dulcolax Supp) 10 mg RECTAL DAILY PRN PRN Reason: SEVERE CONSITIPATION Fluoxetine HCl (Prozac) 20 mg PO DAILY [facility] Last Admin: 11/17/17 09:07 Dose: 20 mg Hydrochlorothiazide (Hydrodiuril) 25 mg PO DAILY [facility] Last Admin: 11/17/17 09:08 Dose: 25 mg Sodium Chloride (Ns Inj) 1,000 mls @ 50 mls/hr IV.CONT .Q20H [facility] Last Admin: 11/17/17 04:50 Dose: Not Given Lactulose (Lactulose Liq) 30 ml PO DAILY PRN PRN Reason: SEVERE CONSITIPATION Pantoprazole Sodium (Protonix) 40 mg PO DAILY [facility] Last Admin: 11/17/17 09:07 Dose: 40 mg Quetiapine Fumarate (Seroquel) 25 mg PO [facility] Last Admin: 11/16/17 21:12 Dose: 25 mg Sennosides (Senokot) 17.2 mg PO Q12H PRN PRN Reason: Moderate Constipation Sodium Chloride (Ns Flush) 2 ml IV.FLUSH BID [facility] Last Admin: 11/17/17 09:09 Dose: 2 ml Sodium Chloride (Ns Flush) 2 ml IV.FLUSH PRN PRN PRN Reason: FLUSH AFTER USING IV ACCESS Tamsulosin HCl (Flomax) 0.4 mg PO [facility] Last Admin: 11/16/17 21:12 Dose: 0.4 mg Physical Exam Vital signs: Vital Signs 11/16/17 16:00 11/16/17 18:45 11/16/17 20:00 Temperature 98.7 F 98.4 F Pulse Rate 62 62 64 Respiratory Rate 18 17 16 Blood Pressure 167/82 H 154/85 H 150/75 H Pulse Oximetry 93 L 93 L 94 L 11/16/17 23:10 11/16/17 23:11 11/17/17 00:00 Temperature 98.8 F Pulse Rate 71 68 75 Respiratory Rate 18 Blood Pressure 177/84 H Pulse Oximetry 97 11/17/17 00:11 11/17/17 01:00 11/17/17 02:00 Temperature Pulse Rate 75 70 68 Respiratory Rate Blood Pressure Pulse Oximetry 11/17/17 03:00 11/17/17 04:00 11/17/17 05:00 Temperature 98.5 F Pulse Rate 69 93 H 81 Respiratory Rate 18 Blood Pressure 172/79 H Pulse Oximetry 96 11/17/17 06:00 11/17/17 07:00 11/17/17 08:00 Temperature 97.5 F L Pulse Rate 80 78 84 Respiratory Rate 18 Blood Pressure 143/88 H Pulse Oximetry 94 L 11/17/17 09:00 11/17/17 10:00 Temperature Pulse Rate 86 82 Respiratory Rate Blood Pressure Pulse Oximetry Intake & Output 11/16/17 11/17/17 11/17/17 18:59 06:59 18:59 Intake Total 1760 / 1760 1600 / 1600 Output Total 1250 / 1250 Balance 1760 / 1760 350 / 350 Weight 93.7 kg Intake: IV 1010 / 1010 1000 / 1000 Heparin/NS PF Inj 1,500 ML @ 0 10 / 10 mls/hr .ROUTE .STK-MED ONE Rx#: [id number] NS Inj 1,000 ML @ 50 mls/hr IV. 1000 / 1000 1000 / 1000 CONT .Q20H [facility] Rx#:[id number] Oral 600 / 600 Anesthesia Amount 750 / 750 Output: Urine 1250 / 1250 Narrative: GENERAL: This is a well-nourished, well-developed patient, in no apparent distress. Patient speaks in clear complete sentences. Patient is pleasant. HEENT: Head is atraumatic and normocephalic. Neck is supple without lymphadenopathy and trachea is midline. No JVD or carotid bruits. CARDIOVASCULAR: Regular rate and rhythm without murmurs, gallops, or rubs. Right groin site is dry and intact with no evidence of bleeding or hematoma. RESPIRATORY: Clear to auscultation. Breath sounds equal bilaterally. No wheezes , rales, or rhonchi. Chest wall is nontender. No use of accessory muscles. GASTROINTESTINAL: Abdomen is nontender, nondistended. Abdomen soft. No obvious pulsatile mass or bruit. No CVA tenderness. Strong femoral pulses bilaterally. Normal bowel sounds in all quadrants. MUSCULOSKELETAL: Patient is moving upper and lower extremities freely. No calf tenderness or edema, no Homans sign. Strong pulses in upper and lower extremities. NEUROLOGICAL: Patient is alert and oriented. Cranial nerves 2-12 are grossly intact. No focal deficits and speech is clear. SKIN: No rash and turgor is normal. Results 11/15/17 06:05 11/15/17 06:05 Intake and Output 11/16/17 11/17/17 11/17/17 22:59 06:59 14:59 Intake Total 1760 / 1760 1600 / 1600 Output Total 1250 / 1250 Balance 1760 / 1760 350 / 350 Intake: IV 1010 / 1010 1000 / 1000 Heparin/NS PF Inj 1,500 ML @ 0 10 / 10 mls/hr .ROUTE .STK-MED ONE Rx#: [id number] NS Inj 1,000 ML @ 50 mls/hr IV. 1000 / 1000 1000 / 1000 CONT .Q20H [facility] Rx#:[id number] Oral 600 / 600 Anesthesia Amount 750 / 750 Output: Urine 1250 / 1250 Other: Weight 93.7 kg Assessment and Plan - Assessment (1) Chest pain, rule out acute myocardial infarction Code(s): R07.9 - Chest pain, unspecified Status: Acute (2) HTN (hypertension) Code(s): I10 - Essential (primary) hypertension Status: Acute (3) History of ERCP Code(s): Z98.890 - Other specified postprocedural states Status: Acute (4) Depression Code(s): F32.9 - Major depressive disorder, single episode, unspecified Status : Acute (5) Hypercholesterolemia Code(s): E78.00 - Pure hypercholesterolemia, unspecified Status: Acute (6) Hx of heart artery stent Code(s): Z95.5 - Presence of coronary angioplasty implant and graft Status: Acute - Plan Cardiac catheterization on 11-16-17 shows patent coronary artery stents with 60% stenosis in the LAD. We will continue aggressive modification of cardiac risk factors. We will increase patient's atorvastatin to 40 mg po at bedtime. Continue current cardiac treatment plan. Patient is cleared to be discharged from cardiac standpoint. We will continue to monitor patient during hospitalization and follow-up in office post discharge. Patient was seen and evaluated by Dr. Dyer who participated in care, management and decision-making. - Attending Attestation Patient seen and examined. I reviewed and agree with the evaluation and plan as presented. Continue aggressive risk factor modification. DC home today.
[2017-11-17 12:53] VITALS: BP 151/94; RESP 16; O2SAT 98
[2017-11-17 14:22] VITALS: PULSE 84
== END 2017-11-17 14:45 | disposition home or self-care (01) ==
LOC: NEPD 14:44 → NEDA 14:44 → NEPHCDU 21:26 → NEPGCP 22:20 → HCIS 11-16 17:51 → HCPC 11-16 18:42
PROVIDERS: ADMIT Hospitalist; ATTEND Hospitalist
DX: Z87.891 Personal history of nicotine dependence; J44.9 Chronic obstructive pulmonary disease, unspecified; G89.29 Other chronic pain; K21.9 Gastro-esophageal reflux disease without esophagitis; I25.110 Atherosclerotic heart disease of native coronary artery with unstable angina pectoris; E11.9 Type 2 diabetes mellitus without complications; I50.9 Heart failure, unspecified; Z88.8 Allergy status to other drugs, medicaments and biological substances; Z95.5 Presence of coronary angioplasty implant and graft; F32.9 Major depressive disorder, single episode, unspecified; E78.5 Hyperlipidemia, unspecified; E78.00 Pure hypercholesterolemia, unspecified; M54.9 Dorsalgia, unspecified; Z79.82 Long term (current) use of aspirin; I11.0 Hypertensive heart disease with heart failure; N40.0 Benign prostatic hyperplasia without lower urinary tract symptoms; Z86.718 Personal history of other venous thrombosis and embolism; I45.2 Bifascicular block; Z79.899 Other long term (current) drug therapy; R74.8 Abnormal levels of other serum enzymes

== ENCOUNTER 2017-11-18 07:54 | Observation (INO) ==
[2017-11-18] MEDS ORDERED: MethylPREDNISolone Sod Succinate Inj 125 MG/2 ML Vial IV.PUSH ONE (08:17)
[2017-11-18] MEDS ORDERED: Famotidine PF Inj 20 MG/2 ML Vial IV.PUSH ONE (08:17)
[2017-11-18] MEDS ORDERED: MethylPREDNISolone Sod Succinate Inj 125 MG/2 ML Vial ONE (08:18)
[2017-11-18 08:35] LABS: Baso # (Auto) 0.1 th/mm3 (0.0-0.2); Baso % (Auto) 0.4 % (0.0-2.0); Eos # (Auto) 0.1 th/mm3 (0.0-0.4); Eos % (Auto) 0.6 % (0.0-4.0); Hematocrit 40.1 % (39.0-51.0); Hemoglobin 13.1 gm/dL (13.0-17.0); Lymph # (Auto) 2.6 th/mm3 (1.0-4.8); Lymph % (Auto) 16.2 % (9.0-44.0); Mean Corpuscular HGB Conc 32.7 % (32.0-36.0); Mean Corpuscular Hemoglobin 29.4 pg (27.0-34.0); Mean Platelet Volume 8.2 fL (7.0-11.0); Mono # (Auto) 1.3 th/mm3 (0.0-0.9); Mono % (Auto) 8.4 % (0.0-8.0); Neut # (Auto) 11.9 th/mm3 (1.8-7.7); Neut % (Auto) 74.4 % (16.0-70.0); Platelet Count 315 th/mm3 (150-450); Red Blood Count 4.45 mil/mm3 (4.50-5.90); Red Cell Distribution Width 14.7 % (11.6-17.2)
--- NOTE | 2017-11-18 08:52 | ED ---
HPI General Chief complaint: Allergic Reaction Stated complaint: allergic reaction Time Seen by Provider: 11/18/17 08:17 History of Present Illness HPI narrative: This is a a 62-year-old male with a history of hypertension, depression, hyperlipidemia, coronary artery disease, who presents today with complaints of swelling to his face lips. Patient has had previous angioedema in the past. Patient states it started this morning when he woke up. He denies any new medication. He states he has been tested with an skylights assembler and told not to take bananas and a medicine that he does not remember but he states he is not taking that medication at this point. He denies any difficulty breathing. He states that he does have some slight discomfort with trying to swallow. There are no other complaints at the time of examination. Related Data Home Medications Medication Instructions Recorded Confirmed aspirin 81 mg PO DAILY 09/28/17 11/18/17 fluoxetine 20 mg PO DAILY 09/28/17 11/18/17 quetiapine [Seroquel] 25 mg PO HS 09/28/17 11/18/17 tamsulosin [Flomax] 0.4 mg PO HS 09/28/17 11/18/17 amlodipine [Norvasc] 5 mg PO DAILY 10/13/17 11/18/17 pantoprazole [Protonix] 40 mg PO DAILY 10/13/17 11/18/17 Previous Rx's Medication Instructions Recorded famotidine [Pepcid] 40 mg PO BID #10 tab 10/13/17 epinephrine [EpiPen 2-Toni] 0.3 mg IM Q10M PRN #2 each 10/14/17 diphenhydramine HCl [Benadryl] 25 mg PO Q6H PRN #14 cap 11/09/17 atorvastatin 40 mg PO HS #30 tab 11/17/17 losartan 25 mg PO DAILY #30 tab 11/17/17 Allergies Allergy/AdvReac Type Severity Reaction Status Date / Time ibuprofen Allergy Severe RASH Verified 10/27/17 22:15 lisinopril Allergy Severe angioedema Verified 10/27/17 22:15 Review of Systems Constitutional Reports system reviewed and no additional complaints, except as docu Eyes Denies blurry vision, Denies diplopia and Reports other (Swelling under his eyes bilaterally.) ENT Reports lip swelling, Denies mouth lesions, Denies sore throat, Reports throat swelling and Denies tongue swelling Cardiovascular Reports system reviewed and no additional complaints, except [facility] Respiratory Reports system reviewed and no additional complaints, except as [facility] Gastrointestinal Reports system reviewed and no additional complaints, except as [facility] Genitourinary Reports system reviewed and no additional complaints, except as [facility] Musculoskeletal Reports system reviewed and no additional complaints, except as docu Integumentary/Breasts Denies pruritus, Denies new lesions and Denies erythema Neurologic Reports system reviewed and no additional complaints, except as docu [facility] Medical History Medical History Depression (Acute) Hypercholesterolemia (Acute) COPD (chronic obstructive pulmonary disease) (Acute) Chronic back pain (Acute) Surgical History Surgical History History of ERCP (Acute) Hx of heart artery stent (Acute) Social History Social History Substance History: No History of Abuse Second Hand Smoke Exposure: No Smoking Status: Former smoker Tobacco Type: Cigarettes How Often Do You Have a Drink Containing Alcohol: Monthly or less Recent Travel in [facility] within the Last 8 Weeks: No Recent Out of Country Travel within the Last 8 Weeks: No Immunization History Tetanus Immunization: <5 Years Hx Influenza Vaccine This Season: No Exam Narrative Exam Narrative: GENERAL: Well-developed well-nourished male in no acute respiratory distress. Patient is also obvious swelling to his lips. SKIN: Focused skin assessment warm/dry. No erythema. No urticaria. HEAD: Atraumatic. Normocephalic. EYES: No scleral icterus. No injection or drainage. Slight puffiness to the inferior eyelids. ENT: No nasal bleeding or discharge. Mucous membranes pink and moist. Upper and lower lip swollen. Tongue swollen. On examination, uvula was normal. There was no stridor. Subjectively patient said it felt full when he swallowed. NECK: Trachea midline. No JVD. Supple, no stridor. CARDIOVASCULAR: Regular rate and rhythm. No murmur appreciated. RESPIRATORY: No accessory muscle use. Clear to auscultation. Breath sounds equal bilaterally. GASTROINTESTINAL: Abdomen soft, non-tender, nondistended. Hepatic and splenic margins not palpable. MUSCULOSKELETAL: No obvious deformities. No clubbing. No cyanosis. No edema. NEUROLOGICAL: Awake and alert. No obvious cranial nerve deficits. Motor grossly within normal limits. Normal speech. Course Initial Documented Vital Signs Temperature 97.7 F 11/18/17 07:58 Pulse Rate 90 11/18/17 07:58 Respiratory Rate 18 11/18/17 07:58 Blood Pressure 182/81 H 11/18/17 07:58 Pulse Oximetry 95 11/18/17 07:58 Last Documented Vital Signs Temperature 97.7 F 11/18/17 07:58 Pulse Rate 76 11/18/17 08:18 Respiratory Rate 20 11/18/17 08:18 Blood Pressure 156/87 H 11/18/17 08:18 Pulse Oximetry 97 11/18/17 08:18 Medical Decision Making MDM Narrative Medical decision making narrative: 62-year-old male with a history of angioedema , hypertension, hyperlipidemia, depression, coronary artery disease, presents today with complaints of swelling to his lips and face. Patient has had previous angioedema secondary to CONNIE inhibitors. Somewhere it was mentioned that he possibly could have recurrent Sewed from his hypercholesterolemia met however he is on losartan is possible it could be from the ARB. Patient has acute kidney injury on labs. He has been given Solu-Medrol, 125 mill grams IV x1 dose and Benadryl 50 mg IV. He is also been started on IV fluids. He is still swollen and given his history and no clear etiology, we will admit him under observation for steroids and Benadryl. Case was [facility]ined[facility]. Medical Screen Exam Complete: Yes Emergency Medical Condition: Yes Differential Diagnosis Differential Diagnosis: Edema versus acute allergic reaction versus contact dermatitis Lab Data Result diagrams: 11/18/17 08:15 11/18/17 08:15 Lab Results 11/18/17 11/18/17 Range/Units 08:15 08:15 WBC 16.0 H (4.0-11.0) th/mm3 RBC 4.45 L (4.50-5.90) mil/mm3 Hgb 13.1 (13.0-17.0) gm/dL Hct 40.1 (39.0-51.0) % MCV 90.0 (80.0-100.0) fL MCH 29.4 (27.0-34.0) pg MCHC 32.7 (32.0-36.0) % RDW 14.7 (11.6-17.2) % Plt Count 315 (150-450) th/mm3 MPV 8.2 (7.0-11.0) fL Neut % (Auto) 74.4 H (16.0-70.0) % Lymph % (Auto) 16.2 (9.0-44.0) % [place] % (Auto) 8.4 H (0.0-8.0) % Eos % (Auto) 0.6 (0.0-4.0) % Baso % (Auto) 0.4 (0.0-2.0) % Neut # (Auto) 11.9 H (1.8-7.7) th/mm3 Lymph # (Auto) 2.6 (1.0-4.8) th/mm3 [place] # (Auto) 1.3 H (0.0-0.9) th/mm3 Eos # (Auto) 0.1 (0.0-0.4) th/mm3 Baso # (Auto) 0.1 (0.0-0.2) th/mm3 WBC Differential . Differential Comment Auto diff final Sodium 138 (136-145) meq/L Potassium 4.3 (3.5-5.1) meq/L Chloride 102 (98-107) meq/L Carbon Dioxide 28.2 (21.0-32.0) meq/L Anion Gap 8 (5-15) meq/L BUN 25 H (7-18) mg/dL Creatinine 1.43 H (0.60-1.30) mg/dL Estimated GFR 50 L (>89) mL/min Random Glucose 119 H (74-106) mg/dL Calcium 8.8 (8.5-10.1) mg/dL Discharge Plan Discharge Disposition Patient Disposition: 30 Still Patient Discharge Details Diagnosis: Angioedema, HTN (hypertension), Hypercholesterolemia, Acute kidney injury Physicians Team ED Provider: Mick Graves Primary Care Provider: NON STAFF,PROVIDER Rxs /Orders / Referrals /Forms Prescriptions: No Action amlodipine [Norvasc] 5 mg Tablet 5 mg PO DAILY RF: 0 pantoprazole [Protonix] 40 mg Tablet,Delayed Release (Dr/Ec) 40 mg PO DAILY RF: 0 famotidine [Pepcid] 40 mg tablet 40 mg PO BID Qty: 10 RF: 0 epinephrine [EpiPen 2-Toni] 0.3 mg/0.3 mL auto-injector 0.3 mg IM Q10M PRN (Reason: anaphylaxis) Qty: 2 RF: 0 quetiapine [Seroquel] 25 mg Tablet 25 mg PO HS RF: 0 fluoxetine 20 mg Tablet 20 mg PO DAILY RF: 0 aspirin 81 mg Tablet,Chewable 81 mg PO DAILY RF: 0 tamsulosin [Flomax] 0.4 mg Capsule,Extended Release 24hr 0.4 mg PO HS RF: 0 diphenhydramine HCl [Benadryl] 25 mg capsule 25 mg PO Q6H PRN (Reason: itching) Qty: 14 RF: 0 atorvastatin 40 mg Tablet 40 mg PO HS Qty: 30 RF: 0 losartan 25 mg Tablet 25 mg PO DAILY Qty: 30 RF: 0 Discharge Interventions Interventions: Vital Signs Last Done: 11/18/17 08:18 Status ED Status: With Doctor
[2017-11-18 09:12] LABS: Calcium 8.8 mg/dL (8.5-10.1); Carbon Dioxide 28.2 meq/L (21.0-32.0)
[2017-11-18 09:14] LABS: Potassium 4.3 meq/L (3.5-5.1)
--- NOTE | 2017-11-18 12:51 | P.HP ---
History of Present Illness Primary Care Physician: PROVIDER NON STAFF History of Present Illness: 62-year-old white male being admitted for angioedema. Patient was in his usual state of health until this morning when he began experiencing lip swelling and some throat tightening sensation. Says this happened after eating breakfast. He had some chicken which she says is not unusual for his diet. Thus he decided come to the emergency department. Denies having nausea vomiting. Does report having some diarrhea. Denies having any shortness of breath otherwise. Says on a daily basis he wakes up feeling with a sense of a lump in throat but today was more profound. Has a mild rash on his facial hair distribution. Says that he has been to the emergency department 5 times in the past month for this issue. He has a rash over his lin line, says no rash otherwise. He says he is recently had "" allergy testing done but it sounds like he had it done at her primary care physician's office. Says he knows that bananas on the list; he has been avoiding all the listed triggers and still having problems. Patient came to the emergency room about a week ago and was prescribed prednisone. It is clear that he picked it up from the pharmacy but it is unclear if he is actually taking it. Review of Systems All other systems reviewed negative except as stated in HPI PMFSH - History History Provided By: Patient - Medical History Medical History: Medical History (Last Reviewed 11/18/17 @ 12:50 by Jalil Pineda MD) Depression (Acute) Hypercholesterolemia (Acute) COPD (chronic obstructive pulmonary disease) Chronic back pain - Surgical History Surgical History: Surgical History (Last Reviewed 11/18/17 @ 12:50 by Jalil Pineda MD) History of ERCP (Acute) Hx of heart artery stent (Acute) - Family History Family History: Family History (Last Updated 11/18/17 @ 15:43 by Jalil Pineda MD) Other Hypertension - Social History I have reviewed the patient's Social History: Yes - Tobacco History Second Hand Smoke Exposure: No Smoking Status: Former smoker Tobacco Type: Cigarettes - Alcohol History How Often Do You Have a Drink Containing Alcohol: Never - Substance Use History Substance History: No History of Abuse - Travel History Recent Travel in the [place] Within the Last 8 Weeks: No Recent Travel Out of the Country Within the Last 8 Weeks: No - Immunization History Tetanus Immunization: <5 Years Hx Influenza Vaccine This Season: No Medications and Allergies Active Medications: Active Medications Dexamethasone Sodium Phosphate (Decadron Inj) 8 mg IV.PUSH ONCE ONE Stop: 11/18/17 14:01 Sodium Chloride (Ns Flush) 2 ml IV.FLUSH UNSCH PRN PRN Reason: FLUSH AFTER USING IV ACCESS Sodium Chloride (Ns Flush) 2 ml IV.FLUSH BID GRACIA Allergies Allergy/AdvReac Type Severity Reaction Status Date / Time ibuprofen Allergy Severe RASH Verified 10/27/17 22:15 lisinopril Allergy Severe angioedema Verified 10/27/17 22:15 Home Medications Medication Instructions Recorded Confirmed Type aspirin 81 mg PO DAILY 09/28/17 11/18/17 History fluoxetine 20 mg PO DAILY 09/28/17 11/18/17 History quetiapine [Seroquel] 25 mg PO HS 09/28/17 11/18/17 History tamsulosin [Flomax] 0.4 mg PO HS 09/28/17 11/18/17 History amlodipine [Norvasc] 5 mg PO DAILY 10/13/17 11/18/17 History pantoprazole [Protonix] 40 mg PO DAILY 10/13/17 11/18/17 History Exam Vital signs: Vital Signs 11/18/17 07:58 11/18/17 08:18 11/18/17 09:37 Temperature 97.7 F Pulse Rate 90 76 64 Respiratory Rate 18 20 18 Blood Pressure 182/81 H 156/87 H 147/86 H Pulse Oximetry 95 97 97 11/18/17 11:16 Temperature 97.4 F L Pulse Rate 67 Respiratory Rate 16 Blood Pressure 163/86 H Pulse Oximetry 94 L Intake & Output 11/17/17 11/18/17 11/18/17 18:59 06:59 18:59 Weight 94 kg Other: Weight On Admission 93.894 kg Narrative: VS: afebrile GENERAL: Lying in bed, awake, alert, no acute distress SKIN: Mild urticarial appearing rash over his cheeks in the distribution of his facial hair EYES: No scleral icterus. No injection or drainage. ENT: No nasal bleeding or discharge. Patient does have some upper and lower lip edema, tongue does not seem frankly edematous CARDIOVASCULAR: Regular rate and rhythm. no murmurs RESPIRATORY: No accessory muscle use. Clear to auscultation. Breath sounds equal bilaterally. GASTROINTESTINAL: Abdomen soft, non-tender, nondistended. Extremities: No clubbing, cyanosis, or edema. No obvious deformities. MUSCULOSKELETAL: adequate muscle bulk and tone for age and habitus NEUROLOGICAL: Awake and alert. No obvious cranial nerve deficits. No facial droop nor slurred speech noted. PSYCHIATRIC: Appropriate mood and affect; insight and judgment normal. Results - Labs CBC & Chem 7: 11/18/17 08:15 11/18/17 08:15 Labs: Laboratory Results - last 24 hr 11/18/17 11/18/17 08:15 08:15 WBC 16.0 H RBC 4.45 L Hgb 13.1 Hct 40.1 MCV 90.0 MCH 29.4 MCHC 32.7 RDW 14.7 Plt Count 315 MPV 8.2 Neut % (Auto) 74.4 H Lymph % (Auto) 16.2 [place] % (Auto) 8.4 H Eos % (Auto) 0.6 Baso % (Auto) 0.4 Neut # (Auto) 11.9 H Lymph # (Auto) 2.6 [place] # (Auto) 1.3 H Eos # (Auto) 0.1 Baso # (Auto) 0.1 WBC Differential . Differential Comment Auto diff final Sodium 138 Potassium 4.3 Chloride 102 Carbon Dioxide 28.2 Anion Gap 8 BUN 25 H Creatinine 1.43 H Estimated GFR 50 L Random Glucose 119 H Calcium 8.8 Caprini VTE Risk Assessment Caprini VTE Risk Assessment: Moderate/High Risk (score >= 2) Caprini Risk Assessment Model: Point Value = 1 Point Value = 2 Point Value = 3 Point Value = 5 Age 41-60 Minor surgery BMI > 25 kg/m2 Swollen legs Varicose veins or History of unexplained or recurrent spontaneous Oral contraceptives or hormone replacement Sepsis (< 1 month) Serious lung disease, including pneumonia (< 1 month) Abnormal pulmonary function Acute myocardial infarction Congestive heart failure (< 1 month) History of inflammatory bowel disease Medical patient at bed rest Age 61-74 Arthroscopic surgery Major open surgery (> 45 min) Laparoscopic surgery (> 45 min) Malignancy Confined to bed (> 72 hours) Immobilizing plaster cast Central venous access Age >= 75 History of VTE Family history of VTE Factor V Leiden Prothrombin [id number] Lupus anticoagulant Anticardiolipin antibodies Elevated serum homocysteine Heparin-induced thrombocytopenia Other congenital or acquired thrombophilia Stroke (< 1 month) Elective arthroplasty Hip, pelvis, or leg fracture Acute spinal cord injury (< 1 month) Prophylaxis Regimen: Total Risk Factor Score Risk Level Prophylaxis Regimen 0-1 Low Early ambulation 2 Moderate Order ONE of the following: *Sequential Compression Device (SCD) *Heparin 5000 units SQ BID 3-4 Higher Order ONE of the following medications: *Heparin 5000 units SQ TID *Enoxaparin/Lovenox 40 mg SQ daily (WT < 150 kg, CrCl > 30 mL/min) *Enoxaparin/Lovenox 30 mg SQ daily (WT < 150 kg, CrCl > 10-29 mL/min) *Enoxaparin/Lovenox 30 mg SQ BID (WT < 150 kg, CrCl > 30 mL/min) AND/OR *Sequential Compression Device (SCD) 5 or more Highest Order ONE of the following medications: *Heparin 5000 units SQ TID (Preferred with Epidurals) *Enoxaparin/Lovenox 40 mg SQ daily (WT < 150 kg, CrCl > 30 mL/min) *Enoxaparin/Lovenox 30 mg SQ daily (WT < 150 kg, CrCl > 10-29 mL/min) *Enoxaparin/Lovenox 30 mg SQ BID (WT < 150 kg, CrCl > 30 mL/min) AND *Sequential Compression Device (SCD) Assessment and Plan - Plan 62-year-old white male being admitted for angioedema. Angioedema No acute cause identified despite patient's outpatient allergy testing. Status post Benadryl and IV Solu-Medrol. -Passed bedside nursing swallow -Telemetry -Awaiting list of "allergy listed" -Continue Benadryl, famotidine, giving Decadron, will dose with oral prednisone daily -Hold home aspirin for now given possibility of cross-reactivity with ibuprofen adverse reaction -We will hold home quetiapine and fluoxetine ESTELITA - had recent cath; BMP in AM Coronary artery disease Continue home Lipitor We will hold home aspirin in light of possible allergy given rashes with ibuprofen -We will give Plavix in light of aspirin concern Hypertension Continue home amlodipine and tamsulosin Lovenox
[2017-11-18] MEDS: Sod Chloride 0.9% Inj 1,000 ML IV.CONT SCH (14:29)
[2017-11-18] MEDS: Famotidine PF Inj 20 MG/2 ML Vial IV.PUSH SCH (21:09)
[2017-11-18] MEDS: Enoxaparin Inj 30 MG/0.3 ML Syringe SQ SCH (21:10)
[2017-11-19] MEDS: Sod Chloride 0.9% Inj 1,000 ML IV.CONT SCH ×2 (03:52→14:29)
[2017-11-19 05:56] LABS: Calcium 8.9 mg/dL (8.5-10.1); Carbon Dioxide 30.2 meq/L (21.0-32.0); Potassium 4.2 meq/L (3.5-5.1)
[2017-11-19] MEDS ORDERED: amLODIPine 5 MG Tablet PO SCH (09:00)
[2017-11-19] MEDS: Famotidine PF Inj 20 MG/2 ML Vial IV.PUSH SCH (09:14)
--- NOTE | 2017-11-19 12:05 | P.PN ---
Subjective Interval history: Follow-up on patient with angioedema/allergic reaction. Patient seen and examined. Patient's facial swelling is much improved. He is now able to swallow without any difficulty. Patient is a very poor historian is difficult to ascertain from the patient what medications he was actually on at home. He does endorse that he has been on aspirin for a number of years. He denies any chest pain or shortness of breath. Denies any nausea, vomiting or abdominal pain. Physical Exam Vital signs: Vital Signs 11/18/17 13:23 11/18/17 15:43 11/18/17 19:36 Temperature 97.7 F 97.4 F L Pulse Rate 70 64 79 Respiratory Rate 16 20 Blood Pressure 161/87 H 165/90 H Pulse Oximetry 93 L 94 L 11/18/17 20:00 11/18/17 23:08 11/19/17 03:16 Temperature 97.4 F L 97.4 F L Pulse Rate 68 63 Respiratory Rate 20 19 Blood Pressure 165/90 H 152/84 H Pulse Oximetry 94 L 96 91 L 11/19/17 08:00 11/19/17 08:35 Temperature 97.8 F Pulse Rate 72 71 Respiratory Rate 18 Blood Pressure 185/97 H Pulse Oximetry 95 Intake & Output 11/18/17 11/19/17 11/19/17 18:59 06:59 18:59 Intake Total 480 / 480 1360 / 1360 Balance 480 / 480 1360 / 1360 Weight 94 kg 93.894 kg Intake: IV 1000 / 1000 NS Inj 1,000 ML @ 84 mls/hr IV. 1000 / [id number] [facility] Rx#:[id number] Oral 480 / 480 360 / 360 Other: # Voids 2 3 Date of Last Bowel Movement 11/19/17 Weight On Admission 93.894 kg Narrative: GENERAL: Well-developed well-nourished [place] male patient in no acute distress. Awake and alert. Mild facial edema noted. SKIN: Warm and dry. HEAD: Atraumatic. Normocephalic. EYES: Pupils equal and round. No scleral icterus. No injection or drainage. ENT: No nasal bleeding or discharge. Mucous membranes pink and moist. NECK: Trachea midline. CARDIOVASCULAR: Regular rate and rhythm. RESPIRATORY: No accessory muscle use. Clear to auscultation. Breath sounds equal bilaterally. GASTROINTESTINAL: Abdomen soft, non-tender, nondistended. +BS. MUSCULOSKELETAL: Extremities without clubbing, cyanosis, or edema. No obvious deformities. NEUROLOGICAL: Awake and alert. No obvious cranial nerve deficits. Motor grossly within normal limits. Able to move all extremities spontaneously. Normal speech. PSYCHIATRIC: Appropriate mood and affect; insight and judgment normal. Results - Labs CBC & Chem 7: 11/19/17 12:30 11/19/17 05:14 Laboratory Results - last 24 hr 11/19/17 05:14 Sodium 140 Potassium 4.2 Chloride 102 Carbon Dioxide 30.2 Anion Gap 8 BUN 20 H Creatinine 1.12 Estimated GFR 66 L Random Glucose 122 H Calcium 8.9 Assessment and Plan - Plan 62-year-old white male being admitted for angioedema. 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 Status post Benadryl and IV Solu-Medrol. Suspect patient allergic to losartan given previous history of angioedema reaction on lisinopril -Passed bedside nursing swallow -continue on Telemetry -Continue Benadryl, Claritin, famotidine and prednisone -Discontinue losartan -We will resume 81 mg aspirin while patient is inpatient and monitor for any evidence of recurrent allergic reaction ESTELITA had recent cath Creatinine 1.43, now 1.12 -Improved with IV fluids -Avoid nephrotoxic agents -Continue to monitor kidney function as indicated Coronary artery disease History of cardiac stents s/p cath 11/16 revealing patent coronary artery stents with 60% stenosis in the LAD patient has no cardiac complaints at this time Continue home Lipitor Resume aspirin as stated above -hold Plavix for now Hypertension, not well controlled Increase amlodipine to 10 mg daily. Begin hydralazine 25 mg 3 times daily -Continue to monitor BP and adjust treatment accordingly Leukocytosis, steroid rxn -patient has no fever, does not appear septic Lovenox Code Status: FULL Discussed Condition With: patient, nursing staff, Dr. Hernandez Discharge Planning: Not ready for discharge. Possible discharge in next 24 hours.
[2017-11-19] MEDS ORDERED: amLODIPine 5 MG Tablet PO ONE (12:08)
[2017-11-19 13:35] LABS: Eos % (Auto) 0.1 % (0.0-4.0); Hematocrit 40.1 % (39.0-51.0); Hemoglobin 13.2 gm/dL (13.0-17.0); Lymph # (Auto) 2.7 th/mm3 (1.0-4.8); Lymph % (Auto) 16.6 % (9.0-44.0); Mean Corpuscular HGB Conc 32.9 % (32.0-36.0); Mean Corpuscular Hemoglobin 29.8 pg (27.0-34.0); Mean Corpuscular Volume 90.5 fL (80.0-100.0); Mean Platelet Volume 8.4 fL (7.0-11.0); Mono # (Auto) 1.9 th/mm3 (0.0-0.9); Neut # (Auto) 11.6 th/mm3 (1.8-7.7); Neut % (Auto) 71.3 % (16.0-70.0); Platelet Count 339 th/mm3 (150-450); Red Blood Count 4.43 mil/mm3 (4.50-5.90); Red Cell Distribution Width 14.8 % (11.6-17.2); White Blood Count 16.2 th/mm3 (4.0-11.0)
[2017-11-19] MEDS ORDERED: predniSONE 20 MG Tablet PO SCH (17:00)
[2017-11-19] MEDS: FLUoxetine 20 MG Capsule PO SCH (17:37)
[2017-11-19] MEDS: Loratadine 10 MG Tablet PO SCH (17:37)
[2017-11-19] MEDS: hydrALAZINE 25 MG Tablet PO SCH (17:37)
[2017-11-19] MEDS ORDERED: QUEtiapine 25 MG Tablet PO SCH (21:00)
[2017-11-19] MEDS: Enoxaparin Inj 30 MG/0.3 ML Syringe SQ SCH (21:09)
[2017-11-19] MEDS: Famotidine 20 MG Tablet PO SCH (21:10)
[2017-11-19] MEDS: predniSONE 20 MG Tablet PO SCH (21:11)
[2017-11-20 07:40] VITALS: BP 173/83; PULSE 61; RESP 16; TEMP 97.4; O2SAT 91
--- NOTE | 2017-11-20 08:41 | P.PN ---
Subjective Interval history: Follow up on patient with angioedema. Patient seen and examined. Patient reports some mild redness over the center of his forehead but otherwise has no complaints. He denies any facial/lip/tongue swelling. He denies any difficulty with swallowing. He denies any dyspnea or chest pain. Physical Exam Vital signs: Vital Signs 11/19/17 12:00 11/19/17 16:00 11/19/17 20:00 Temperature 97.8 F 97.6 F 98.4 F Pulse Rate 68 65 75 Respiratory Rate 18 Blood Pressure 119/93 H 141/83 H 157/85 H Pulse Oximetry 98 96 96 11/19/17 23:26 11/20/17 04:00 11/20/17 07:37 Temperature 98.0 F 98.0 F 97.4 F L Pulse Rate 56 L 72 61 Respiratory Rate 16 Blood Pressure 164/82 H 152/82 H 173/83 H Pulse Oximetry 96 97 91 L Intake & Output 11/19/17 11/20/17 11/20/17 18:59 06:59 18:59 Intake Total 2400 / 2400 240 / 240 Balance 2400 / 2400 240 / 240 Weight 93.894 kg Intake: IV 1200 / 1200 NS Inj 1,000 ML @ 84 mls/hr IV. 1000 / 1000 CONT .[id number] [facility] Rx#:[id number] Oral 1200 / 1200 240 / 240 Other: # Voids 3 2 Date of Last Bowel Movement 11/19/17 # Bowel Movements 1 Narrative: GENERAL: Well-developed well-nourished [place] male patient. Awake and alert. In no acute distress. SKIN: Warm and dry. HEENT: Atraumatic. Normocephalic. Pupils equal and round. No scleral icterus. No injection or drainage. No nasal bleeding or discharge. Mucous membranes pink and moist. NECK: Trachea midline. CARDIOVASCULAR: Regular rate and rhythm. RESPIRATORY: No accessory muscle use. Clear to auscultation. Breath sounds equal bilaterally. GASTROINTESTINAL: Abdomen soft, non-tender, nondistended. +BS. MUSCULOSKELETAL: Extremities without clubbing, cyanosis, or edema. No obvious deformities. NEUROLOGICAL: Awake and alert. No obvious cranial nerve deficits. Motor grossly within normal limits. Able to move all extremities spontaneously. Normal speech. PSYCHIATRIC: Appropriate mood and affect; insight and judgment normal. Results - Labs CBC & Chem 7: 11/19/17 12:30 11/19/17 05:14 Laboratory Results - last 24 hr 11/19/17 12:30 WBC 16.2 H RBC 4.43 L Hgb 13.2 Hct 40.1 MCV 90.5 MCH 29.8 MCHC 32.9 RDW 14.8 Plt Count 339 MPV 8.4 Neut % (Auto) 71.3 H Lymph % (Auto) 16.6 Ida % (Auto) 12.0 H Eos % (Auto) 0.1 Baso % (Auto) 0.0 Neut # (Auto) 11.6 H Lymph # (Auto) 2.7 Ida # (Auto) 1.9 H Eos # (Auto) 0.0 Baso # (Auto) 0.0 WBC Differential . Differential Comment Auto diff final Assessment and Plan - Assessment (1) Angioedema Code(s): T78.3XXA - Angioneurotic edema, initial encounter Status: Acute (2) Acute kidney injury Code(s): N17.9 - Acute kidney failure, unspecified Status: Acute - Plan 62-year-old white male being admitted for angioedema. 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 Status post Benadryl and IV Solu-Medrol. Suspect patient allergic to losartan given previous history of angioedema reaction on lisinopril -Passed bedside nursing swallow -continue on Telemetry -Continue Benadryl, Claritin, famotidine and prednisone -Losartan discontinued -resumed ASA yesterday. No recurrence of angioedema over night. ESTELITA had recent cath Creatinine 1.43, now 1.12 -Improved with IV fluids -Avoid nephrotoxic agents -encourage po fluid intake -Continue to monitor kidney function as indicated Coronary artery disease History of cardiac stents s/p cath 11/16 revealing patent coronary artery stents with 60% stenosis in the LAD patient has no cardiac complaints at this time Continue home Lipitor and ASA daily Hypertension, not well controlled Continue amlodipine to 10 mg daily. Increase hydralazine to 50 mg 3 times daily -Continue to monitor BP and adjust treatment accordingly Leukocytosis, steroid rxn -patient has no fever, does not appear septic Lovenox Discharge patient to home Condition on discharge: stable Heart healthy Diet as tolerated Ad Reyna activity Rx written: Norvasc 10mg daily, Hydralazine 50mg TID Follow-up with primary care physician and pile trimmer Dr. Dyer Code Status: FULL Discussed Condition With: patient, nursing staff, Dr. Hernandez (1) Angioedema Qualifiers: Encounter type: subsequent encounter Qualified Code(s): T78.3XXD - Angioneurotic edema, subsequent encounter
[2017-11-20] MEDS ORDERED: amLODIPine 10 MG Tablet PO SCH (09:00)
[2017-11-20] MEDS: Loratadine 10 MG Tablet PO SCH (09:09)
[2017-11-20] MEDS: FLUoxetine 20 MG Capsule PO SCH (09:09)
[2017-11-20] MEDS: Famotidine 20 MG Tablet PO SCH (09:09)
[2017-11-20] MEDS: hydrALAZINE 25 MG Tablet PO SCH (09:09)
[2017-11-20] MEDS: predniSONE 20 MG Tablet PO SCH (09:11)
[2017-11-20] MEDS ORDERED: hydrALAZINE 25 MG Tablet PO SCH (10:12)
== END 2017-11-20 11:27 | disposition home or self-care (01) ==
LOC: NEPC 07:54 → NEDA 07:54 → NEPHCDU 11:01
PROVIDERS: ADMIT Hospitalist; ATTEND Hospitalist